=== PATIENT | male | born 1965 | race Caucasian/White ===

== ENCOUNTER 2018-04-27 11:49 | Emergency (ER) | payer OTHER ==
[~2018-04-27] VITALS: Ht 180.3 cm; Wt 102.1 kg
--- OUTSIDE RECORDS SUMMARY | ~2018-04-27 | XMS | Clinical Summary ---
Demographics + + + | Address | [address] | | | [place] [address] | + + + | Home Phone | | + + + | Preferred Language | Unknown | + + + | Marital Status | | + + + | Christianity Affiliation | Unknown | + + + | Race | White | + + + | Ethnic Group | Patient Declined | + + + Author + + + | Author | [facility] | + + + | Organization | [facility] | + + + | Address | [facility] | | | [place] [address] | + + + | Phone | | + + + Care Team Providers + + + + | Care Internet Site Designer Name | Role | Phone | + + + + Unavailable | Unavailable | + + + + Conditions or Problems +---------+---------+---------+--------+---------+---------+---------+---------+---------+ | Problem | Problem | Onset | Status | Entry | Provide | Comment | Standar | Annotat | | Name | Code | Date | | Date | r | | d | e | | | | | | | | | Descrip | | | | | | | | | | tion | | +---------+---------+---------+--------+---------+---------+---------+---------+---------+ | DOT | [id number] | | Active | | Karl | | History | | | physica | 2 | /12 | | /18 | Frauenp | | and | | | l | (SNOMED | | | | ann MD | | physica | | | | CT) | | | | | | l | | | | | | | | | | examina | | | | | | | | | | tion, | | | | | | | | | | adminis | | | | | | | | | | trative | | +---------+---------+---------+--------+---------+---------+---------+---------+---------+ Medications + + + + + +-----+ + | Medication | Instructio | Start Date | Stop Date | Generic | NDC | Provider | | | ns | | | Name | | | + + + + + +-----+ + + + | Observed no known medications at | + + Medications Administered No information available. Allergies, Adverse Reactions, Alerts Observed no known allergies at Results +------+------+-------+------+-------+------+ + | Date | Name | Value | Unit | Range | Flag | Descriptio | | | | | | | | n | +------+------+-------+------+-------+------+ + + + | Office Visit: DOT Physical | + + + +--------+------+---+---+---+ + | | [facility] | Done | | | | Documentat | | | REVIEW | | | | | ion of | | | | | | | | current | | | | | | | | medication | | | | | | | | s | | | | | | | | (procedure | | | | | | | | ) | + +--------+------+---+---+---+ + | | [facility] | T | | | | Documentat | | | | | | | | ion of | | | | | | | | current | | | | | | | | medication | | | | | | | | s | | | | | | | | (procedure | | | | | | | | ) | + +--------+------+---+---+---+ + Plan of Care No information available. Procedures No information available. Vital Signs + + +-------+---------+ + | Date | Name | Value | Unit | Description | + + +-------+---------+ + | | BMI (Body Mass | 30.70 | kg/m2 | Body Mass Index | | | Index) | | | [Ratio] | + + +-------+---------+ + | | Body | 98.7 | [degF] | temperature E&M | | | Temperature | | | | + + +-------+---------+ + | | BP Diastolic | 64 | mm[Hg] | blood pressure, | | | | | | diastolic - | | | | | | 8462-4 | + + +-------+---------+ + | | BP Systolic | 112 | mm[Hg] | blood pressure, | | | | | | systolic - | | | | | | 8480-6 | + + +-------+---------+ + | | Heart Rate | 65 | /min | pulse rate E&M | | | | | | - 8867-4 | + + +-------+---------+ + | | Height | 70 | [in_us] | height E&M - | | | | | | 8302-2 | + + +-------+---------+ + | | O2 % BldC | 98 | % | oxygen | | | Oximetry | | | saturation, | | | | | | oximetry | + + +-------+---------+ + | | Respiratory | 16 | /min | respiratory | | | Rate | | | rate E&M - | | | | | | 9279-1 | + + +-------+---------+ + | | Weight Measured | 214 | [lb_av] | weight E&M - | | | | | | 3141-9 | + + +-------+---------+ + Immunizations No information available. Advance Directives No information available. Chief Complaint + + + | Chief Complaint Description | Start Date | + + + | DOT physcial | | + + + Family History No information available. GE General Observations Section narrative not generated History of Past Illness No information available. History of Present Illness No information available. Review of Systems No information available."
== END 2018-04-27 12:40 | disposition home or self-care (01) ==
LOC: ED 11:49
DX: S00.01XA Abrasion of scalp, initial encounter (principal); F17.200 Nicotine dependence, unspecified, uncomplicated; Z88.0 Allergy status to penicillin; W20.8XXA Other cause of strike by thrown, projected or falling object, initial encounter; Y92.89 Other specified places as the place of occurrence of the external cause; Y99.0 Civilian activity done for income or pay
CPT/HCPCS: 99282

== ENCOUNTER 2019-08-15 12:16 | Emergency (ER) | payer OTHER, BC ==
[~2019-08-15] VITALS: Ht 180.3 cm; Wt 102.1 kg
--- OUTSIDE RECORDS SUMMARY | ~2019-08-15 | XMS | Encounter Summary ---
Demographics + + + | Address | [address] | | | [place] [address] | + + + | Home Phone | | + + + | Preferred Language | Unknown | + + + | Marital Status | | + + + | Sabianism Affiliation | Unknown | + + + | Race | Unknown | + + + | Ethnic Group | Unknown | + + + Author + + + | Author | [facility] | | | and [place] | + + + | Organization | [facility] | | | and [place] | + + + | Address | Unknown | + + + | Phone | Unavailable | + + + Support + + +---------+ + | Name | Relationship | Address | Phone | + + +---------+ + | Lo Rach | ECON | Unknown | | + + +---------+ + Care Team Providers + +------+ + | Care Spa Host Name | Role | Phone | + +------+ + PCP | Unavailable | + +------+ + Encounter Details +--------+ + + + + | Date | Type | Department | Care Team | Description | +--------+ + + + + | 08/13/ | Hospital | [facility] | | | | 1996 - | Encounter | MED CTR GENERIC IP | | | | | | CONV DEPT [address] | | | | 08/14/ | | [place], | | | | 1996 | | [place] [address] | | | | | | [phone] | | | +--------+ + + + + Social History + +-------+ +--------+------+ | Tobacco Use | Types | Packs/Day | Years | Date | | | | | Used | | + +-------+ +--------+------+ | Never Assessed | | | | | + +-------+ +--------+------+ + + + | Sex Assigned at | Date Recorded | | | | + + + | Not on file | | + + + + + + + | Job Start Date | Occupation | Industry | + + + + | Not on file | Not on file | Not on file | + + + + + + + + | Travel History | Travel Start | Travel End | + + + + + + | No recent travel history available. | + + documented as of this encounter Plan of Treatment Not on filedocumented as of this encounter Visit Diagnoses Not on filedocumented in this encounter"
--- OUTSIDE RECORDS SUMMARY | ~2019-08-15 | XMS | Encounter Summary ---
Demographics + + + | Address | [address] | | | [place] [address] | + + + | Home Phone | | + + + | Preferred Language | Unknown | + + + | Marital Status | | + + + | Voodoo Affiliation | Unknown | + + + | Race | Unknown | + + + | Ethnic Group | Unknown | + + + Author + + + | Author | [facility] | | | and [place] | + + + | Organization | [facility] | | | [...] Team Providers + +------+ + | Care Commercial Driver'S License Driver Name | Role | Phone | + +------+ + PCP | Unavailable | + +------+ + Encounter Details +--------+ + + + + | Date | Type | Department | Care Team | Description | +--------+ + + + + | 03/01/ | Hospital | [facility] | | | | 1993 | Encounter | MED CTR EMERGENCY | | | | | | [place] [address] | | | | | | [place] | | | | | | [address] | | | | | | [phone] | | | +--------+ + + + [...]
--- OUTSIDE RECORDS SUMMARY | ~2019-08-15 | XMS | Encounter Summary ---
Demographics + + + | Address | [address] | | | [place] [address] | + + + | Home Phone | | + + + | Preferred Language | Unknown | + + + | Marital Status | | + + + | Restoration Affiliation | Unknown | + + + | Race | Unknown | + + + | Ethnic Group | Unknown | + + + Author + + + | Author | [facility] | | | and [place] | + + + | Organization | [facility] | | | [...] Team Providers + +------+ + | Care Thread Cutter Name | Role | Phone | + +------+ + PCP | Unavailable | + +------+ + Encounter Details +--------+ + + + + | Date | Type | Department | Care Team | Description | +--------+ + + + + | 04/27/ | Hospital | [facility] | | | | 1993 - | Encounter | MED CTR GENERIC IP | | | | | | CONV DEPT [address] | | | | 04/28/ | | [place], | | | | 1993 | | [place] [address] | | | | | | [phone] | | | +--------+ + + + [...]
--- OUTSIDE RECORDS SUMMARY | ~2019-08-15 | XMS | Encounter Summary ---
Demographics + + + | Address | [address] | | | [place] [address] | + + + | Home Phone | | + + + | Preferred Language | Unknown | + + + | Marital Status | | + + + | Scientology Affiliation | Unknown | + + + | Race | Unknown | + + + | Ethnic Group | Unknown | + + + Author + + + | Author | [facility] | | | and [place] | + + + | Organization | [facility] | | | [...] Team Providers + +------+ + | Care Caustic Room Operator Name | Role | Phone | + +------+ + PCP | Unavailable | + +------+ + Encounter Details +--------+ + + + + | Date | Type | Department | Care Team | Description | +--------+ + + + + | 06/17/ | Hospital | [facility] | | | | 1992 | Encounter | MED CTR EMERGENCY | | | | | | [place] [address] | | | | | | [place] | | | | | | [address] | | | | | | [phone] | | | +--------+ + + + [...]
--- OUTSIDE RECORDS SUMMARY | ~2019-08-15 | XMS | Encounter Summary ---
Demographics + + + | Address | [address] | | | [place] [address] | + + + | Home Phone | | + + + | Preferred Language | Unknown | + + + | Marital Status | | + + + | Jainism Affiliation | Unknown | + + + | Race | Unknown | + + + | Ethnic Group | Unknown | + + + Author + + + | Author | [facility] | | | and [place] | + + + | Organization | [facility] | | | [...] Team Providers + +------+ + | Care Sewing Teacher Name | Role | Phone | + +------+ + PCP | Unavailable | + +------+ + Encounter Details +--------+ + + + + | Date | Type | Department | Care Team | Description | +--------+ + + + + | 04/27/ | Hospital | [facility] | | | | 1993 - | Encounter | MED CTR GENERIC IP | | | | | | CONV DEPT [address] | | | | 04/28/ | | [place], | | | | 1993 | | [place] [address] | | | | | | [phone] | | | +--------+ + + + [...]
--- OUTSIDE RECORDS SUMMARY | ~2019-08-15 | XMS | Encounter Summary ---
Demographics + + + | Address | [address] | | | [place] [address] | + + + | Home Phone | | + + + | Preferred Language | Unknown | + + + | Marital Status | | + + + | Jainism Affiliation | Unknown | + + + | Race | Unknown | + + + | Ethnic Group | Unknown | + + + Author + + + | Author | [facility] | | | and [place] | + + + | Organization | [facility] | | | [...] Team Providers + +------+ + | Care Mid Level Project Manager Name | Role | Phone | + +------+ + PCP | Unavailable | + +------+ + Encounter Details +--------+ + + + + | Date | Type | Department | Care Team | Description | +--------+ + + + + | 06/25/ | Hospital | [facility] | Josh Castro MD | Popliteal synovial | | 2009 | Encounter | CONVERSION [address]P [address] [facility] | cyst | | | | [address] | [address] [place], [place] | | | | | [place], [place] | [address] | | | | | [address] | | | | | | [phone] | | | +--------+ + + + [...] filedocumented as of this encounter Visit Diagnoses + + | Diagnosis | + + | 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
--- OUTSIDE RECORDS SUMMARY | ~2019-08-15 | XMS | Encounter Summary ---
Demographics + + + | Address | [address] | | | [place] [address] | + + + | Home Phone | | + + + | Preferred Language | Unknown | + + + | Marital Status | | + + + | Latter-Day Affiliation | Unknown | + + + | Race | Unknown | + + + | Ethnic Group | Unknown | + + + Author + + + | Author | [facility] | | | and [place] | + + + | Organization | [facility] | | | and [...] Team Providers + +------+ + | Care Manager Wellness Name | Role | Phone | + +------+ + PCP | Unavailable | + +------+ + Encounter Details +--------+ + + + + | Date | Type | Department | Care Team | Description | +--------+ + + + + | 09/26/ | Hospital | [facility] | | | | 2008 | Encounter | MED CTR GENERIC OP | | | | | | CONV DEPT [address] | | | | | | [place], | | | | | | [place] [address] | | | | | | [phone] | | | +--------+ + + + [...]
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
--- OUTSIDE RECORDS SUMMARY | ~2019-08-15 | XMS | Encounter Summary ---
Demographics + + + | Address | [address] | | | [place] [address] | + + + | Home Phone | | + + + | Preferred Language | Unknown | + + + | Marital Status | | + + + | Faith Affiliation | Unknown | + + + | Race | Unknown | + + + | Ethnic Group | Unknown | + + + Author + + + | Author | [facility] | | | and [place] | + + + | Organization | [facility] | | | [...] Team Providers + +------+ + | Care Patient Observation Assistant Name | Role | Phone | + +------+ + PCP | Unavailable | + +------+ + Encounter Details +--------+ + + + + | Date | Type | Department | Care Team | Description | +--------+ + + + + | 07/21/ | [facility] | [facility] | [place], | | | 2007 | Encounter | MED CTR EMERGENCY | Francis Rojas MD [address] | | | | | [place] [address] | [facility] | | | | | [place] | [place] [address] | | | | | [address] | [phone] | | | | | [phone] | | | +--------+ + + + [...]
--- OUTSIDE RECORDS SUMMARY | ~2019-08-15 | XMS | Encounter Summary ---
Demographics + + + | Address | [address] | | | [place] [address] | + + + | Home Phone | | + + + | Preferred Language | Unknown | + + + | Marital Status | | + + + | Yazidism Affiliation | Unknown | + + + | Race | Unknown | + + + | Ethnic Group | Unknown | + + + Author + + + | Author | [facility] | | | and [place] | + + + | Organization | [facility] | | | [...] Team Providers + +------+ + | Care Music Education Adjunct Professor Name | Role | Phone | + +------+ + | No, Physician | PCP | Unavailable | + +------+ + Encounter Details +--------+ + + + + | Date | Type | Department | Care Team | Description | +--------+ + + + + | 04/30/ | Emergency | [facility] | No, Physician | Patient left without | | 2018 | | MED CTR EMERGENCY | | being seen (Primary | | | | [address] | | [place]) | | | | [place] | | | | | | [address] | | | | | | [phone] | | | +--------+ + + + + Social History + +-------+ +--------+------+ | Tobacco Use | Types | Packs/Day | Years | Date | | | | | Used | | + +-------+ +--------+------+ | Never Smoker | | | | | + +-------+ +--------+------+ + + +---------+ + | Alcohol Use [...] + + documented as of this encounter Medications at Time of Discharge + + + +---------+--------+ + | Medication | Sig | Dispensed | Refills | Start | End Date | | | | | | Date | | + + + +---------+--------+ + | Ibuprofen (ADVIL) | Take by mouth. | | 0 | | | | 200 MG CAPS | | | | | | + + + +---------+--------+ + documented as of this encounter Plan of Treatment Not on filedocumented as of this encounter Visit Diagnoses + + | Diagnosis | + + | Patient left without being seen - Primary Surgical or other procedure not carried out | | because of patient's decision | + + documented in this encounter"
--- OUTSIDE RECORDS SUMMARY | ~2019-08-15 | XMS | Encounter Summary ---
Demographics + + + | Address | [address] | | | [place] [address] | + + + | Home Phone | | + + + | Preferred Language | Unknown | + + + | Marital Status | | + + + | Mormon Affiliation | Unknown | + + + | Race | Unknown | + + + | Ethnic Group | Unknown | + + + Author + + + | Author | [facility] | | | and [place] | + + + | Organization | [facility] | | | [...] Team Providers + +------+ + | Care Life Sciences Instructor Name | Role | Phone | + +------+ + | No, Physician | PCP | Unavailable | + +------+ + Reason for Visit +--------+ + | Reason | Comments | +--------+ + | Trauma | proc rm/ right hand 4th finger x 1 hour | +--------+ + Encounter Details +--------+---------+ + + + | Date | Type | Department | Care Team | Description | +--------+---------+ + + + | 03/24/ | Office | [facility] | Sada Douglass | Crush injury | | 2015 | Visit | CARE [address] | DO [address] | (Primary Dx) | | | | [place], [place] | [place], [place] | | | | | [address] | [address] | | | | | [phone] | | | +--------+---------+ + + + Social History [...] + + + | Blood Pressure | 94/62 | 03/24/2015 6:42 PM | | | | | PDT | | + + + + + | Pulse | 66 | 03/24/2015 6:42 PM | | | | | PDT | | + + + + + | Temperature | 37.4 C (99.3 F) | 03/24/2015 6:42 PM | | | | | PDT | | + + + + + | Respiratory Rate | 12 | 03/24/2015 6:42 PM | | | | | PDT | | + + + + + | Oxygen Saturation | 98% | 03/24/2015 6:42 PM | | | | | PDT | | + + + + + | Inhaled Oxygen | - | - | | | Concentration | | | | + + + + + | Weight | 88.5 kg (195 lb) | 03/24/2015 6:42 PM | | | | | PDT | | + + + + + | Height | 180.3 cm (5' 11") | 03/24/2015 6:42 PM | | | | | PDT | | + + + + + | Body Mass Index | 27.2 | 03/24/2015 6:42 PM | | | | | PDT | | + + + + + documented in this encounter Patient Instructions Patient Instructions Sada Douglass MD - 03/24/2015 7:20 PM PDTKeep wound clean and dry Prescription for [place] for pain Prescription for Keflex for antibiotic Keep nail protected so it is not accidentally pulled off Return if symptoms worsen or fail to improve documented in this encounter Progress Notes Saad Douglass MD - 03/24/2015 7:34 PM PDTFormatting of this note might be diffe rent from the original. Subjective: Patient ID: Francis Owens is a 49 y.o. male. HPI Comments: Patient is here with chief complaint of pain to his right ring finger. Patie nt states that a friend accidentally dropped a piece of asphalt on his right ring finger. P atient states this occurred earlier today but the bleeding has not stopped and he has had to change the Band-Aid about 6 times. Patient states that the finger is throbbing. This is a n isolated injury and he has no other complaints. He states that his tetanus is up-to-date Patient's medications, allergies, past medical, surgical, social and family histories were reviewed and updated as appropriate. Review of Systems All other systems reviewed and are negative. Objective: Physical Exam Constitutional: He is oriented to person, place, and time. He appears well-developed and we ll-nourished. Musculoskeletal: Hands: Patient has pain and bruising to the distal aspect of his right ring finger. He has a subu ngual hematoma under most of the nailbed. He has a small amount of bleeding from the distal aspect of the finger. Patient can flex and extend at both joints but it is very painful at the DIP. Patient is neurovascularly intact Neurological: He is alert and oriented to person, place, and time. Skin: Skin is warm. Psychiatric: He has a normal mood and affect. Nursing note and vitals reviewed. Assessment: Crush injury to right ring finger with subungual hematoma Plan: Pt seen and examined. He was sent for Xray that showed no acute fracture. His finger was c leaned and the hematoma was trephinated with release of blood and improvement of pain althou gh the finger was casing fluid tender. Pt finger was dressed and he was given rx for norco and kef kane. Advise to keep finger clean and dry and to take cre not to dislodge the nail. Pt advi sed to return if worsening or failing to improve documented in this encounter Plan of Treatment Not on filedocumented as of this encounter Results XR Finger Right 2 + Vw (03/24/2015 7:17 PM PDT) + + | Specimen | + + | | + + + + + | Narrative | Performed At | + + + | XR FINGER RIGHT 2 + VW 03/24/2015 7:17 PM HISTORY: crush injury. | [facility] | | COMPARISON: None. FINDINGS: There are no acute osseous | [facility] | | abnormalities. Moderate degenerative changes are visualized of the | [facility] | | radiocarpal joint and the distal radioulnar joint. Slight deformity | - IMAGING | | is present of the fifth metacarpal midshaft that could be due to old | | | injury. Screw defects are noted of the distal radius that could be due | | | to prior ORIF. Bone mineralization is normal. Soft tissue structures | | | are unremarkable. IMPRESSION - No acute findings. Dictated | | | and Signed by: Ermias Couch MD Electronically signed: 03/25/2015 | | | 8:41 AM | | + + + + + | Procedure Note | + + | Kayden, Barron Results In - 03/25/2015 8:44 AM PDT XR FINGER RIGHT 2 + VW 03/24/2015 7:17 | | PMHISTORY: crush injury.COMPARISON: None.FINDINGS:There are no acute osseous | | abnormalities. Moderate degenerative changes arevisualized of the radiocarpal joint and | | the distal radioulnar joint. Slightdeformity is present of the fifth metacarpal midshaft | | that could be due to oldinjury. Screw defects are noted of the distal radius that could | | be due to priorORIF. Bone mineralization is normal. Soft tissue structures are | | unremarkable.IMPRESSION -No acute findings.Dictated and Signed by: Ermias Couch MD | | Electronically signed: 03/25/2015 8:41 AM | |visualized of the radiocarpal joint and the distal radioulnar joint. Slight | |deformity is present of the fifth metacarpal midshaft that could be due to old | |injury. Screw defects are noted of the distal radius that could be due to prior | |ORIF. Bone mineralization is normal. Soft tissue structures are unremarkable. | | | |IMPRESSION - | |No acute findings. | | | |Dictated and Signed by: Ermias Couch MD | | Electronically signed: 03/25/2015 8:41 AM | + + + + + + + | Performing | Address | City/State/Zipcode | Phone Number | | Organization | | | | + + + + + | [facility] | [address] | [place] | [phone] | | [facility] | | [id number] | | | - IMAGING | | | | + + + + + documented in this encounter Visit Diagnoses + + | Diagnosis | + + | Crush injury - Primary Crushing injury of unspecified site | + + documented in this encounter
--- OUTSIDE RECORDS SUMMARY | ~2019-08-15 | XMS | Encounter Summary ---
Demographics + + + | Address | [address] | | | [place] [address] | + + + | Home Phone | | + + + | Preferred Language | Unknown | + + + | Marital Status | | + + + | Jewish Affiliation | Unknown | + + + [...] Team Providers + +------+ + | Care Conventional Machinist Name | Role | Phone | + +------+ + PCP | Unavailable | + +------+ + Encounter Details +--------+ + + + + | Date | Type | Department | Care Team | Description | +--------+ + + + + | 02/28/ | Hospital | [facility] | Vaibhav Negro MD | Unspecified Internal | | 2007 | Encounter | CON[address] | NEED NEW ADDRESS | Derangement of Knee | | | | [address] | | | | | | [place] | | | | | | [address] | | | | | | [phone] | | | +--------+ + + + [...] + | Diagnosis | + + | Unspecified internal derangement of knee | + + documented in this encounter"
--- OUTSIDE RECORDS SUMMARY | ~2019-08-15 | XMS | Encounter Summary ---
Demographics + + + | Address | [address] | | | [place] [address] | + + + | Home Phone | | + + + | Preferred Language | Unknown | + + + | Marital Status | | + + + | Samaritan Affiliation | Unknown | + + + | Race | Unknown | + + + | Ethnic Group | Unknown | + + + Author + + + | Author | [facility] | | | and [place] | + + + | Organization | [facility] | | | [...] Team Providers + +------+ + | Care Band Sawing Machine Operator Name | Role | Phone | + +------+ + PCP | Unavailable | + +------+ + Encounter Details +--------+ + + + + | Date | Type | Department | Care Team | Description | +--------+ + + + + | 07/21/ | [facility] | [facility] | [place], | | | 2007 | Encounter | MED CTR EMERGENCY | Francis Rojas MD [address] | | | | | [address] | [facility] | | | | | [place] | [place] [address] | | | | | [address] | [phone] | | | | | [phone] | | | +--------+ + + + [...]
--- OUTSIDE RECORDS SUMMARY | ~2019-08-15 | XMS | Encounter Summary ---
Demographics + + + | Address | [address] | | | [place] [address] | + + + | Home Phone | | + + + | Preferred Language | Unknown | + + + | Marital Status | | + + + | Druze Affiliation | Unknown | + + + | Race | Unknown | + + + | Ethnic Group | Unknown | + + + Author + + + | Author | [facility] | | | and [place] | + + + | Organization | [facility] | | | [...] Team Providers + +------+ + | Care Wellness Ambassador Name | Role | Phone | + +------+ + PCP | Unavailable | + +------+ + Encounter Details +--------+ + + + + | Date | Type | Department | Care Team | Description | +--------+ + + + + | 07/02/ | Hospital | [facility] | Gonsalo Ball, | | | 2012 | Encounter | MED CTR EMERGENCY | [address] | | | | | CENTER [address] | [facility] [place] | | | | | [place] | [place] [address] | | | | | [address] | [phone] | | | | | [phone] | | | | | | | Gold Rothman | | | | | | MD [place] [address] | | | | | | [address] [place] | | | | | | [place] [address] | | | | | | [phone] | | | | | | | | +--------+ + + + [...]
--- OUTSIDE RECORDS SUMMARY | ~2019-08-15 | XMS | Encounter Summary ---
Demographics + + + | Address | [address] | | | [place] [address] | + + + | Home Phone | | + + + | Preferred Language | Unknown | + + + | Marital Status | | + + + | Judaism Affiliation | Unknown | + + + [...] Team Providers + +------+ + | Care Obiee Lead Developer Name | Role | Phone | + +------+ + PCP | Unavailable | + +------+ + Encounter Details +--------+ + + + + | Date | Type | Department | Care Team | Description | +--------+ + + + + | 11/03/ | Hospital | [facility] | | | | 1995 | Encounter | MED CTR EMERGENCY | | | | | | [address] | | | | | | [place] | | | | | | [address] | | | | | | [phone] | | | +--------+ + + + [...]
--- OUTSIDE RECORDS SUMMARY | ~2019-08-15 | XMS | Encounter Summary ---
Demographics + + + | Address | [address] | | | [place] [address] | + + + | Home Phone | | + + + | Preferred Language | Unknown | + + + | Marital Status | | + + + | Judaism Affiliation | Unknown | + + + | Race | Unknown | + + + | Ethnic Group | Unknown | + + + Author + + + | Author | [facility] | | | and [place] | + + + | Organization | [facility] | | [...] Team Providers + +------+ + | Care Certifier Name | Role | Phone | + +------+ + PCP | Unavailable | + +------+ + Encounter Details +--------+ + + + + | Date | Type | Department | Care Team | Description | +--------+ + + + + | 06/28/ | Hospital | [facility] | | | | 1998 | Encounter | MED CTR XRAY [address] | | | | | | [address] | | | | | | [place] [address] | | | | | | [phone] | | | +--------+ + + + [...]
--- OUTSIDE RECORDS SUMMARY | ~2019-08-15 | XMS | Encounter Summary ---
Demographics + + + | Address | [address] | | | [place] [address] | + + + | Home Phone | | + + + | Preferred Language | Unknown | + + + | Marital Status | | + + + | Oriental Orthodox Affiliation | Unknown | + + + | Race | Unknown | + + + | Ethnic Group | Unknown | + + + Author + + + | Author | [facility] | | | and [place] | + + + | Organization | [facility] | | | [...] Team Providers + +------+ + | Care Copier Field Service Technician Name | Role | Phone | + +------+ + PCP | Unavailable | + +------+ + Encounter Details +--------+ + + + + | Date | Type | Department | Care Team | Description | +--------+ + + + + | 11/21/ | Hospital | [facility] | | | | 1996 | Encounter | MED CTR EMERGENCY | | | | | | [address] | | | | | | [place] | | | | | | [address] | | | | | | [phone] | | | +--------+ + + + [...]
--- OUTSIDE RECORDS SUMMARY | ~2019-08-15 | XMS | Encounter Summary ---
Demographics + + + | Address | [address] | | | [place] [address] | + + + | Home Phone | | + + + | Preferred Language | Unknown | + + + | Marital Status | | + + + | Mandaen Affiliation | Unknown | + + + | Race | Unknown | + + + | Ethnic Group | Unknown | + + + Author + + + | Author | [facility] | | | and [place] | + + + | Organization | [facility] | | | [...] Team Providers + +------+ + | Care Comfort Station Attendant Name | Role | Phone | + +------+ + | No, Physician | PCP | Unavailable | + +------+ + Encounter Details +--------+ + + + + | Date | Type | Department | Care Team | Description | +--------+ + + + + | 04/03/ | Imaging | [facility] [place] [facility] | [place] | | | 2019 | Exam | [place] [address] | [address], [address] [place] | [place] | | | | | [place] [address] | [address] | | | | | [phone] | | | +--------+ + + + [...] Not on filedocumented as of this encounter Procedures + +--------+ + + + | Procedure Name | Priori | Date/Time | Associated Diagnosis | Comments | | | ty | | | | + +--------+ + + + | XR KNEE RIGHT 3 VW | STAT | 04/03/2019 | Contusion of right | Results for this | | | | 4:00 PM | knee, initial | procedure are in the | | | | PDT | encounter | results section. | + +--------+ + + + documented in this encounter Results XR Knee Right 3 Vw (04/03/2019 4:00 PM PDT) + + | Specimen | + + | | + + + + + | Narrative | Performed At | + + + | THREE VIEWS RIGHT KNEE 04/03/2019 4:00 PM CLINICAL HISTORY: | [facility] | | trauma COMPARISON: RADIOGRAPHS 2007 FINDINGS: Unicompartmental | | | arthroplasty hardware is now present in the medial femorotibial | | | compartment, and appears intact and well seated. Changes of | | | anterior cruciate ligament reconstruction are now suggested as well, | | | with anchors present centrally in the distal femur and proximal | | | tibia. The bones are well-mineralized and well aligned and no | | | fracture or subluxation is evident. Mild narrowing of the lateral | | | femorotibial and patellofemoral compartments is apparent, with | | | marginal osteophyte formation. No knee effusion or other soft | | | tissue abnormality is visible. A small metallic foreign body is | | | present in the dorsal cortex of the mid to distal femoral diaphysis. | | | IMPRESSION - 1. NO RADIOGRAPHIC EVIDENCE OF RECENT INJURY. | | | 2. INTACT CHANGES OF PREVIOUS INSTRUMENTATION DESCRIBED WITH | | | MILD DEGENERATIVE CHANGES. Dictated and Signed by: James Marie | | | Electronically signed: 04/03/2019 10:20 PM | | + + + + + | Procedure Note | + + | Kayden, Rad Results In - 04/03/2019 10:23 PM PDT THREE VIEWS RIGHT KNEE 04/03/2019 4:00 | | PMCLINICAL HISTORY: traumaCOMPARISON: RADIOGRAPHS 2007FINDINGS: Unicompartmental | | arthroplasty hardware is now present in the medialfemorotibial compartment, and appears | | intact and well seated. Changes ofanterior cruciate ligament reconstruction are now | | suggested as well, withanchors present centrally in the distal femur and proximal tibia. | | The bones arewell-mineralized and well aligned and no fracture or subluxation is | | evident. Mild narrowing of the lateral femorotibial and patellofemoral compartments | | isapparent, with marginal osteophyte formation. No knee effusion or other softtissue | | abnormality is visible. A small metallic foreign body is present in thedorsal cortex of | | the mid to distal femoral diaphysis.IMPRESSION -1. NO RADIOGRAPHIC EVIDENCE OF RECENT | | INJURY.2. INTACT CHANGES OF PREVIOUS INSTRUMENTATION DESCRIBED WITH | | MILDDEGENERATIVE CHANGES.Dictated and Signed by: James Marie MD Electronically signed: | | 04/03/2019 10:20 PM | |tissue abnormality is visible. A small metallic foreign body is present in the | |dorsal cortex of the mid to distal femoral diaphysis. | | | |IMPRESSION - | |1. NO RADIOGRAPHIC EVIDENCE OF RECENT INJURY. | | | |2. INTACT CHANGES OF PREVIOUS INSTRUMENTATION DESCRIBED WITH MILD | |DEGENERATIVE CHANGES. | | | |Dictated and Signed by: James Marie MD | | Electronically signed: 04/03/2019 10:20 PM | + + + +---------+ + + | Performing | Address | City/State/Zipcode | Phone Number | | Organization | | | | + +---------+ + + | [facility] | | | | + +---------+ + + documented in this encounter Visit Diagnoses Not on filedocumented in this encounter"
--- OUTSIDE RECORDS SUMMARY | ~2019-08-15 | XMS | Encounter Summary ---
Demographics + + + | Address | [address] | | | [place] [address] | + + + | Home Phone | | + + + | Preferred Language | Unknown | + + + | Marital Status | | + + + | Yazidi Affiliation | Unknown | + + + | Race | Unknown | + + + | Ethnic Group | Unknown | + + + Author + + + | Author | [facility] | | | and [place] | + + + | Organization | [facility] | | [...] Team Providers + +------+ + | Care Geomagnetist Name | Role | Phone | + +------+ + PCP | Unavailable | + +------+ + Encounter Details +--------+ + + + + | Date | Type | Department | Care Team | Description | +--------+ + + + + | 10/18/ | Hospital | [facility] | | | | 1997 | Encounter | MED CTR EMERGENCY | | | | | | [address] | | | | | | [place] | | | | | | [address] | | | | | | [phone] | | | +--------+ + + + [...]
--- OUTSIDE RECORDS SUMMARY | ~2019-08-15 | XMS | Encounter Summary ---
Demographics + + + | Address | [address] | | | [place] [address] | + + + | Home Phone | | + + + | Preferred Language | Unknown | + + + | Marital Status | | + + + | Restorationist Affiliation | Unknown | + + + | Race | Unknown | + + + | Ethnic Group | Unknown | + + + Author + + + | Author | [facility] | | | and [place] | + + + | Organization | [facility] | | | [...] Team Providers + +------+ + | Care First Officer And Flight Instructor Name | Role | Phone | + +------+ + | No, Physician | PCP | Unavailable | + +------+ + Reason for Visit + + + | Reason | Comments | + + + | Headache (Adult - | | | Re-evaluation) | | + + + Encounter Details +--------+ + + + + | Date | Type | Department | Care Team | Description | +--------+ + + + + | 09/25/ | Emergency | [facility] | Musa Najera, | Blunt head trauma, | | 2018 | | MED CTR EMERGENCY | [place] [address] | initial encounter | | | | CENTER [address] | [place] | (Primary Dx); | | | | [place] | [address] | Concussion without | | | | [address] | | loss of | | | | [phone] | | consciousness, | | | | | | initial encounter | +--------+ + + + + Social [...] + + + | Blood Pressure | 118/77 | 05/01/2018 11:35 AM | | | | | PDT | | + + + + + | Pulse | 63 | 05/01/2018 11:35 AM | | | | | PDT | | + + + + + | Temperature | 36.1 C (96.9 F) | 05/01/2018 11:35 AM | | | | | PDT | | + + + + + | Respiratory Rate | 16 | 05/01/2018 11:35 AM | | | | | PDT | | + + + + + | Oxygen Saturation | 96% | 05/01/2018 11:35 AM | | | | | PDT | | + + + + + | Inhaled Oxygen | - | - | | | Concentration | | | | + + + + + | Weight | 103.6 kg (228 lb 6.3 | 05/01/2018 11:35 AM | | | | oz) | PDT | | + + + + + | Height | - | - | | + + + + + | Body Mass Index | 31.85 | 04/30/2018 6:17 PM | | | | | PDT | | + + + + + documented in this encounter Discharge Instructions AttachmentsThe following attachments cannot be sent through Care Everywhere.Concussion, Aft er (Indonesian)documented in this encounter Medications at Time of Discharge + + + +---------+ + + | Medication | Sig | Dispensed | Refills | Start | End Date | | | | | | Date | | + + + +---------+ + + | | Take 1 tablet by | 30 | 0 | 05/01/20 | | | HYDROcodone-acetamin | mouth every 6 hours | tablet | | 18 | | | ophen (NORCO) 5-325 | as needed. | | | | | | mg per tablet | | | | | | + + + +---------+ + + | Ibuprofen (ADVIL) | Take by mouth. | | 0 | | | | 200 MG CAPS | | | | | | + + + +---------+ + + documented as of this encounter Plan of Treatment Not on filedocumented as of this encounter Procedures + +--------+ + + + | Procedure Name | Priori | Date/Time | Associated Diagnosis | Comments | | | ty | | | | + +--------+ + + + | CT HEAD WO CONTRAST | STAT | 05/01/2018 | | Results for this | | | | 12:45 PM | | procedure are in the | | | | PDT | | results section. | + +--------+ + + + documented in this encounter Results CT Head wo Contrast (05/01/2018 12:45 PM PDT) + + | Specimen | + + | | + + + + + | Narrative | Performed At | + + + | UNENHANCED HEAD CT 05/01/2018 12:36 PM CLINICAL HISTORY: trauma | [facility] | | COMPARISON: None available TECHNIQUE: Axial unenhanced | | | images are performed through the head, along with coronal and | | | sagittal reformations. FINDINGS: There is early cerebral | | | atrophy. Ramirez-white differentiation is maintained. The cerebral | | | parenchyma, ventricles, brainstem and cerebellum are otherwise | | | unremarkable. There is no mass effect, evidence of intracranial | | | hemorrhage or extra-axial abnormality. Concavity of the left lamina | | | papyracea likely relates to more remote trauma. The bones and soft | | | tissues, including the imaged paranasal sinuses, middle ear cavities | | | and mastoid air cells, are otherwise unremarkable. No recent | | | fracture is visible. IMPRESSION - 1. NO EVIDENCE OF RECENT | | | TRAUMATIC INJURY OR ACUTE INTRACRANIAL DISEASE. Images were | | | provided for interpretation on May 01, 2018 at 1245 hours. | | | Results were finalized at 1255 hours. Dictated and Signed by: James | | | MD Frank Electronically signed: 05/01/2018 12:50 PM | | + + + + + | Procedure Note | + + | Kayden, Rad Results In - 05/01/2018 12:53 PM PDT UNENHANCED HEAD CT 05/01/2018 12:36 PM | | | | CLINICAL HISTORY: trauma | | | | COMPARISON: None available | | | | TECHNIQUE: Axial unenhanced images are performed through the head, along with | | coronal and sagittal reformations. | | | | FINDINGS: There is early cerebral atrophy. Ramirez-white differentiation is | | maintained. The cerebral parenchyma, ventricles, brainstem and cerebellum are | | otherwise unremarkable. There is no mass effect, evidence of intracranial | | hemorrhage or extra-axial abnormality. Concavity of the left lamina papyracea | | likely relates to more remote trauma. The bones and soft tissues, including the | | imaged paranasal sinuses, middle ear cavities and mastoid air cells, are | | otherwise unremarkable. No recent fracture is visible. | | | | IMPRESSION - | | 1. NO EVIDENCE OF RECENT TRAUMATIC INJURY OR ACUTE INTRACRANIAL DISEASE. | | | | Images were provided for interpretation on May 01, 2018 at 1245 hours. | | Results were finalized at 1255 hours. | | | | Dictated and Signed by: James Marie MD | | Electronically signed: 05/01/2018 12:50 PM | + + + +---------+ + + | Performing | Address | City/State/Zipcode | Phone Number | | Organization | | | | + +---------+ + + | [facility] | | | | + +---------+ + + documented in this encounter Visit Diagnoses + + | Diagnosis | + + | Blunt head trauma, initial encounter - Primary | + + | Concussion without loss of consciousness, initial encounter | + + documented in this encounter"
--- OUTSIDE RECORDS SUMMARY | ~2019-08-15 | XMS | Clinical Summary ---
Demographics + + + | Address | [address] | | | [place] [address] | + + + | Home Phone | | + + + | Preferred Language | Unknown | + + + | Marital Status | | + + + | Temple Affiliation | Unknown | + + + | Race | Unknown | + + + | Ethnic Group | Unknown | + + + Author + + + | Author | [facility] | | | and [place] | + + + | Organization | [facility] | | | [...] Team Providers + +------+ + | Care Medical Scientific Officer Name | Role | Phone | + +------+ + | No, Physician | PCP | Unavailable | + +------+ + Allergies + + + + + + | Active Allergy | Reactions | Severity | Noted | Comments | | | | | Date | | + + + + + + | Penicillins | | | 03/24/20 | | | | | | 15 | | + + + + + + Medications + + + +---------+------+------+-------+ | Medication | Sig | Dispensed | Refills | Star | End | Statu | | | | | | t | Date | s | | | | | | Date | | | + + + +---------+------+------+-------+ | Ibuprofen (ADVIL) | Take by mouth. | | 0 | | | Activ | | 200 MG CAPS | | | | | | e | + + + +---------+------+------+-------+ | | Take 1 tablet by | 30 | 0 | 09/2 | | Activ | | HYDROcodone-acetamin | mouth every 6 hours | tablet | | / | | e | | ophen (NORCO) 5-325 | as needed. | | | 18 | | | | mg per tablet | | | | | | | + + + +---------+------+------+-------+ +---+ + | | Additional | | | informationPatient | | | not taking. Reported | | | on 05/24/2018 9:01 | | | AM | +---+ + Active Problems + + + | Problem | Noted Date | + + + | Tobacco abuse | 05/15/2017 | + + + + + | Overview: Overview: 30+ Pack year eexlfue5505/15/2017-patient | | declines screening CT scan.Last Assessment & Plan: Patient | | declines screening CT scan, we discussed in detail risks | | associated with 30+ pack-year smoking history. Patient will | | consider screening CT scan in the future. | |Patient declines screening CT scan, we discussed in detail risks associated with 30+ pack-y ear smoking history. Patient will consider screening CT scan in the future. | + + + + + | Hx of vasectomy | 05/15/2017 | + + + + + | Overview: Overview: -requesting referral for | | reversal of vasectomyReferral to Urology placed.Last Assessment & | | Plan: Patient requesting referral for vasectomy reversal. | | Referral to Urology be placed today, referral process discussed | | with patient in detail today. | |Last Assessment & Plan: | |Patient requesting referral for vasectomy reversal. Referral to Urology be placed today, r eferral process discussed with patient in detail today. | + + + + + | Functional disorder of stomach | 12/04/2009 | + + + + + | Overview: Overview: | | H. Pylori positive. Helidac treatment. | | | | IMO Problem List Replacement - 2016_Regulatory_1 | + + + + + | Bronchitis | 12/21/2006 | + + + + + | Overview: Overview: | | Dx Name changed by system update on 05/19/2017 | + + Social History + +-------+ +--------+------+ [...] recent travel history available. | + + Last Filed Vital Signs + + + + + | Vital Sign | Reading | Time Taken | Comments | + + + + + | Blood Pressure | 128/79 | 07/11/2018 10:23 AM | | | | | PST | | + + + + + | Pulse | 82 | 04/03/2019 3:03 PM | | | | | PDT | | + + + + + | Temperature | 36.8 C (98.2 F) | 04/03/2019 3:03 PM | | | | | PDT | | + + + + + | Respiratory Rate | 16 | 04/03/2019 3:03 PM | | | | | PDT | | + + + + + | Oxygen Saturation | 95% | 04/03/2019 3:03 PM | | | | | PDT | | + + + + + | Inhaled Oxygen | - | - | | | Concentration | | | | + + + + + | Weight | 106.9 kg (235 lb | 04/03/2019 3:03 PM | | | | 10.8 oz) | PDT | | + + + + + | Height | 180.3 cm (5' 11") | 07/11/2018 10:23 AM | | | | | PST | | + + + + + | Body Mass Index | 32.87 | 07/11/2018 10:23 AM | | | | | PST | | + + + + + Plan of Treatment + + + + + | Health Maintenance | Due Date | Last Done | Comments | + + + + + | Hepatitis C | | | | | Screening | 5 | | | + + + + + | Vaccine: | | | | | Pneumococcal 19-64 | 1 | | | | (1 of 1 - PPSV23) | | | | + + + + + | Colorectal Cancer | | | | | Screening | 5 | | | | (Colonoscopy) | | | | + + + + + | Vaccine: Zoster (1 | | | | | of 2) | 5 | | | + + + + + | Vaccine: Influenza | | | | | (#1) | 9 | | | + + + + + | Vaccine: | | 08/07/2015 | | | Dtap/Tdap/Td (2 - | 6 | | | | Td) | | | | + + + + + Results Not on filefrom Last 3 Months Advance Directives + + + + + | Type | Date Recorded | Patient | Explanation | | | | Deputy Commonwealth'S Attorney | | + + + + + | Power of | | | | | Supervisor [employer] | | | | + + + + + | Advance | 05/01/2018 11:51 | | | | Directive | AM | | | + + + + +
--- OUTSIDE RECORDS SUMMARY | ~2019-08-15 | XMS | Encounter Summary ---
Demographics + + + | Address | [address] | | | [place] [address] | + + + | Home Phone | | + + + | Preferred Language | Unknown | + + + | Marital Status | | + + + | Sikh Affiliation | Unknown | + + + | Race | Unknown | + + + | Ethnic Group | Unknown | + + + Author + + + | Author | [facility] | | | and [place] | + + + | Organization | [facility] | | | [...] Team Providers + +------+ + | Care Christian Counselor Name | Role | Phone | + +------+ + PCP | Unavailable | + +------+ + Encounter Details +--------+ + + + + | Date | Type | Department | Care Team | Description | +--------+ + + + + | 08/01/ | Hospital | [facility] | | | | 1990 | Encounter | MED CTR EMERGENCY | | | | | | [address] [address] | | | | | | [place] | | | | | | [address] | | | | | | [phone] | | | +--------+ + + + [...]
--- OUTSIDE RECORDS SUMMARY | ~2019-08-15 | XMS | Encounter Summary ---
Demographics + + + | Address | [address] | | | [place] [address] | + + + | Home Phone | | + + + | Preferred Language | Unknown | + + + | Marital Status | | + + + | Orthodoxy Affiliation | Unknown | + + + | Race | Unknown | + + + | Ethnic Group | Unknown | + + + Author + + + | Author | [facility] | | | and [place] | + + + | Organization | [facility] | | | [...] Providers + +------+ + | Care Medical Examiner Name | Role | Phone | + +------+ + PCP | Unavailable | + +------+ + Encounter Details +--------+ + + + + | Date | Type | Department | Care Team | Description | +--------+ + + + + | 06/27/ | Hospital | [facility] | | | | 1998 | Encounter | MED CTR EMERGENCY | | | | | | [place] [address] | | | | | | [place] | | | | | | [address] | | | | | | [phone] | | | +--------+ + + + [...]
--- OUTSIDE RECORDS SUMMARY | ~2019-08-15 | XMS | Encounter Summary ---
Demographics + + + | Address | [address] | | | [place] [address] | + + + | Home Phone | | + + + | Preferred Language | Unknown | + + + | Marital Status | | + + + | Anglican Affiliation | Unknown | + + + | Race | Unknown | + + + | Ethnic Group | Unknown | + + + Author + + + | Author | [facility] | | | and [place] | + + + | Organization | [facility] | | [...] Team Providers + +------+ + | Care Cornetist Name | Role | Phone | + +------+ + PCP | Unavailable | + +------+ + Encounter Details +--------+ + + + + | Date | Type | Department | Care Team | Description | +--------+ + + + + | 07/24/ | Hospital | [facility] | Tulio Delgado, | | | 2012 | Encounter | MED CTR EMERGENCY | [address] | | | | | CENTER [address] | [place] | | | | | [place] | [address] | | | | | [address] | | | | | | [phone] | Zen James | | | | | | Horacio Garcia MD | | | | | | [address] | | | | | | [place] | | | | | | [address] | | | | | | | [...] + +--------+ + + + | XR FOOT RIGHT 3 + VW | Routin | 07/24/2013 | | Results for this | | | e | 4:08 PM | | procedure are in the | | | | PST | | results section. | + +--------+ + + + documented in this encounter Results XR Foot Right 3 + Vw (07/24/2013 4:08 PM PST) + + | Specimen | + + | | + + + + + | Narrative | Performed At | + + + | [facility] | [place] | | Department [address] [place] [address] | [facility] | | [ rep ct [address]] [ rep ct [facility] | | st zip] Signed | - IMAGING | | | | | Patient Name: ZEN OWENS | | | Physician: GUERO : 1965 Age: 48 Sex: M Unit | | | #: [id number] Exam Date: 07/24/13 Location: | | | ER Report #: [id number] Page: | | | %(RAD)RES..mtdd.print.filter("pg") of %(RAD) | | | RES..mtdd.print.filter("tpg") | | | | | | Accession Number: [id number] | | | RIGHT FOOT, 07/24/2013 CLINICAL HISTORY: DROPPED A | | | SHEET OF [place] ON FOOT. COMPARISON: None. | | | FINDINGS: 3 views of the right foot were obtained. There is no | | | evidence for acute fracture or dislocation. Deformity is | | | visualized of the distal shafts of the 3rd and 4th metatarsals that | | | likely represent old injuries. There is a small spur involving the | | | neck of the 5th metatarsal. Mild degenerative changes are noted | | | of the 1st MTP joint with osteophytosis. A tiny spur is observed of | | | the posterior calcaneus. Bone mineralization is normal. | | | IMPRESSION: 1. NO ACUTE FINDINGS. | | | 2. OLD INJURIES TO THE 3RD AND 4TH METATARSALS. 3. | | | DEGENERATIVE CHANGES DESCRIBED ABOVE. Dictated | | | Date/Time: 07/24/2013 16:08 Transcribed Date/Time: 07/24/2013 | | | 17:45 Household Assistant: <<Signature | | | on File>> | | | Ermias | | | MD Khoa07/25/13 0814 <Electronically signed by Ermias Couch MD> | | | Ermias Couch MD 07/24/13 1608 Household Assistant: Clinician [employer]x | | | Iseddinkqerhb94/18/13 1745 Tulio Delgado MD | | + + + + + + + + | Performing | Address | City/State/Zipcode | Phone Number | | Organization | | | | + + + + + | [facility] | [address] | [place] | [phone] | | [facility] | | [address] | | | - IMAGING | | | | + + + + + documented in this encounter Visit Diagnoses Not on filedocumented in this encounter
--- OUTSIDE RECORDS SUMMARY | ~2019-08-15 | XMS | Encounter Summary ---
Demographics + + + | Address | [address] | | | [place] [address] | + + + | Home Phone | | + + + | Preferred Language | Unknown | + + + | Marital Status | | + + + | Jehovah'S Witness Affiliation | Unknown | + + + [...] Team Providers + +------+ + | Care Certified Medical Technician Name | Role | Phone | + +------+ + PCP | Unavailable | + +------+ + Encounter Details +--------+ + + + + | Date | Type | Department | Care Team | Description | +--------+ + + + + | 03/08/ | Hospital | [facility] | Unknown, | | | 1993 | Encounter | MED CTR XRAY [address] | MD [place]ama | | | | | [address] | | | | | | [place] [address] | | | | | | [phone] | | | +--------+ + + + [...]
--- OUTSIDE RECORDS SUMMARY | ~2019-08-15 | XMS | Encounter Summary ---
Demographics + + + | Address | [address] | | | [place] [address] | + + + | Home Phone | | + + + | Preferred Language | Unknown | + + + | Marital Status | | + + + | Confucianism Affiliation | Unknown | + + + [...] Team Providers + +------+ + | Care Senior Reliability Engineer Name | Role | Phone | + +------+ + PCP | Unavailable | + +------+ + Encounter Details +--------+ + + + + | Date | Type | Department | Care Team | Description | +--------+ + + + + | 06/27/ | Hospital | [facility] | | | | 1998 | Encounter | MED CTR EMERGENCY | | | | | | [place] [address] | | | | | | [place] | | | | | | [address] | | | | | | [phone] | | | +--------+ + + + [...]
--- OUTSIDE RECORDS SUMMARY | ~2019-08-15 | XMS | Encounter Summary ---
Demographics + + + | Address | [address] | | | [place] [address] | + + + | Home Phone | | + + + | Preferred Language | Unknown | + + + | Marital Status | | + + + | Sabianism Affiliation | Unknown | + + + | Race | Unknown | + + + | Ethnic Group | Unknown | + + + Author + + + | Author | [facility] | | | and [place] | + + + | Organization | [facility] | | [...] Team Providers + +------+ + | Care Parachute Officer Name | Role | Phone | + +------+ + PCP | Unavailable | + +------+ + Encounter Details +--------+ + + + + | Date | Type | Department | Care Team | Description | +--------+ + + + + | 09/26/ | Hospital | [facility] | | | | 2008 | Encounter | MED CTR GENERIC OP | | | | | | CONV DEPT [address] | | | | | | [address] [place], | | | | | | [place] [address] | | | | | | [phone] | | | +--------+ + + + [...]
--- OUTSIDE RECORDS SUMMARY | ~2019-08-15 | XMS | Encounter Summary ---
Demographics + + + | Address | [address] | | | [place] [address] | + + + | Home Phone | | + + + | Preferred Language | Unknown | + + + | Marital Status | | + + + | Adventist Affiliation | Unknown | + + + | Race | Unknown | + + + | Ethnic Group | Unknown | + + + Author + + + | Author | [facility] | | | and [place] | + + + | Organization | [facility] | | | and [...] Team Providers + +------+ + | Care Hydro Electric Station Operator Name | Role | Phone | + +------+ + PCP | Unavailable | + +------+ + Encounter Details +--------+ + + + + | Date | Type | Department | Care Team | Description | +--------+ + + + + | 06/25/ | Hospital | [facility] | Josh Castro MD | Popliteal synovial | | 2009 | Encounter | CONVERSION [address] | [address] [facility] | cyst | | | | [address] | [address] [place], [place] | | | | | [place], [place] | [address] | | | | | [address] | | | | | | [phone] | | | +--------+ + + + [...]
--- OUTSIDE RECORDS SUMMARY | ~2019-08-15 | XMS | Encounter Summary ---
Demographics + + + | Address | [address] | | | [place] [address] | + + + | Home Phone | | + + + | Preferred Language | Unknown | + + + | Marital Status | | + + + | Orthodox Affiliation | Unknown | + + + | Race | Unknown | + + + | Ethnic Group | Unknown | + + + Author + + + | Author | [facility] | | | and [place] | + + + | Organization | [facility] | | [...] Team Providers + +------+ + | Care Museum Docent Name | Role | Phone | + +------+ + PCP | Unavailable | + +------+ + Encounter Details +--------+ + + + + | Date | Type | Department | Care Team | Description | +--------+ + + + + | 12/03/ | Hospital | [facility] | | | | 2002 | Encounter | MED CTR EMERGENCY | | | | | | [place] [address] | | | | | | [place] | | | | | | [address] | | | | | | [phone] | | | +--------+ + + + [...]
--- OUTSIDE RECORDS SUMMARY | ~2019-08-15 | XMS | Encounter Summary ---
Demographics + + + | Address | [address] | | | [place] [address] | + + + | Home Phone | | + + + | Preferred Language | Unknown | + + + | Marital Status | | + + + | Confucianism Affiliation | Unknown | + + + | Race | Unknown | + + + | Ethnic Group | Unknown | + + + Author + + + | Author | [facility] | | | and [place] | + + + | Organization | [facility] | | | [...] Team Providers + +------+ + | Care Customer Records Division Supervisor Name | Role | Phone | + +------+ + PCP | Unavailable | + +------+ + Encounter Details +--------+ + + + + | Date | Type | Department | Care Team | Description | +--------+ + + + + | 03/08/ | Hospital | [facility] | Unknown, | | | 1993 | Encounter | MED CTR XRAY [address] | [place] | | | | | [address] | | | | | | [place] [address] | | | | | | [phone] | | | +--------+ + + + [...]
--- OUTSIDE RECORDS SUMMARY | ~2019-08-15 | XMS | Encounter Summary ---
Demographics + + + | Address | [address] | | | [place] [address] | + + + | Home Phone | | + + + | Preferred Language | Unknown | + + + | Marital Status | | + + + | Hoahaoism Affiliation | Unknown | + + + | Race | Unknown | + + + | Ethnic Group | Unknown | + + + Author + + + | Author | [facility] | | | and [place] | + + + | Organization | [facility] | | | [...] Team Providers + +------+ + | Care Review Specialist Name | Role | Phone | + +------+ + PCP | Unavailable | + +------+ + Encounter Details +--------+ + + + + | Date | Type | Department | Care Team | Description | +--------+ + + + + | 06/10/ | Hospital | [facility] | Bassem [place], | | | 2008 | Encounter | FAMILY GENERIC | [address] | | | | | CON[address] | [address] | | | | | [address] | [place] [address] | | | | | Gemini | [phone] | | | | | [place] | | | | | | [address] | | | | | | [phone] | | | +--------+ + + + [...]
--- OUTSIDE RECORDS SUMMARY | ~2019-08-15 | XMS | Encounter Summary ---
Demographics + + + | Address | [address] | | | [place] [address] | + + + | Home Phone | | + + + | Preferred Language | Unknown | + + + | Marital Status | | + + + | Quaker Affiliation | Unknown | + + + [...] Team Providers + +------+ + | Care Family Practice Physician Assistant Name | Role | Phone | [...] | | of | [address] | [address] | | | | | consciousnes | [place], | [place] | | | | | s, | [place] [address] | [address] | | | | | subsequent | Phone: | Phone: | | | | | encounter | [phone] | [phone] | | | | | Place of | Fax: | Fax: | | | | | occurrence, | [phone] | [phone] | | | | | industrial | [...] + + | 05/24/ | Office | [facility] | Shelley Robledo | Closed head injury | | 2018 | Visit | [facility] | MD [place] [address] | without loss of | | | | [address] [place] | consciousness, | | | | [address] [place] | [place] [address] | subsequent encounter | | | | [place] | [phone] | (Primary Dx); Place | | | | [address] | | of occurrence, | | | | [phone] | | industrial places | | | [...] LISA Date of injury: 04/27/18 Claim number: [id number] Chief complaint: Follow-up head injury Subjective: Injured [...] 53. Standing-blood press ure 128/80, pulse 57 Cfmgupl-oypa-tbleynatj, well-nourished, in no apparent distress, pleasant cooperative. [...] MMI status. This note was dictated using Pidefarma voice recognition software. Occasional wrong- word or [...]
--- OUTSIDE RECORDS SUMMARY | ~2019-08-15 | XMS | Encounter Summary ---
Demographics + + + | Address | [address] | | | [place] [address] | + + + | Home Phone | | + + + | Preferred Language | Unknown | + + + | Marital Status | | + + + | Worship Affiliation | Unknown | + + + | Race | Unknown | + + + | Ethnic Group | Unknown | + + + Author + + + | Author | [facility] | | | and [place] | + + + | Organization | [facility] | | | and [...] Team Providers + +------+ + | Care Endo Tech Name | Role | Phone | + +------+ + PCP | Unavailable | + +------+ + Encounter Details +--------+ + + + + | Date | Type | Department | Care Team | Description | +--------+ + + + + | 07/07/ | Hospital | [facility] | | | | 2007 - | Encounter | MED CTR OP REHAB | | | | | | [address] | | | | 08/06/ | | [place] [address] | | | | 2007 | | [phone] | | | +--------+ + + + [...]
--- OUTSIDE RECORDS SUMMARY | ~2019-08-15 | XMS | Encounter Summary ---
Demographics + + + | Address | [address] | | | [place] [address] | + + + | Home Phone | | + + + | Preferred Language | Unknown | + + + | Marital Status | | + + + | Adventist Affiliation | Unknown | + + + | Race | Unknown | + + + | Ethnic Group | Unknown | + + + Author + + + | Author | [facility] | | | and [place] | + + + | Organization | [facility] | | | [...] Team Providers + +------+ + | Care Air Cargo Ground Operations Supervisor Name | Role | Phone | + +------+ + PCP | Unavailable | + +------+ + Encounter Details +--------+ + + + + | Date | Type | Department | Care Team | Description | +--------+ + + + + | 07/24/ | Hospital | [facility] | Tulio Delgado, | | | 2012 | Encounter | MED CTR EMERGENCY | [address] | | | | | CENTER [address] | [place] | | | | | [place] | [address] | | | | | [address] | | | | | | [phone] | Zen James | | | | | | Horacio Garcia MD | | | | | | [address] | | | | | | [place] | | | | | | [address] | | | | | | | [...] Performed At | + + + | [facility] | [place] | | Department [address] [place] [address] | [facility] | | [ rep ct [address]] [ rep ct [facility] | | st zip] Signed | - IMAGING | | | | | Patient Name: ZEN OWENS | | | Physician: GUERO : 1965 Age: 48 Sex: M Unit | | | #: [id number] Exam Date: 07/24/13 Location: | | | ER Report #: [id number] Page: | | | %(RAD)RES..mtdd.print.filter("pg") of %(RAD) | | | RES..mtdd.print.filter("tpg") | | | | | | Accession Number: [id number] | | | RIGHT FOOT, 07/24/2013 CLINICAL [...] Transcribed Date/Time: 07/24/2013 | | | 17:[address] Foreman: <<Signature | | | on File>> | | | Ermias | | | MD Khoa07/25/13 0814 <Electronically signed by Ermias Couch MD> | | | Ermias Couch MD 07/24/[address] Foreman: [employer] | | | Mrpksotrwxwcc27/18/13 1745 Tulio Delgado MD | | + + + + + + + + | Performing | Address | City/State/Zipcode | Phone Number | | Organization | | | | + + + + + | [facility] | [address] | [place] | [phone] | | [facility] | | [address] | | | - IMAGING | | | | + + + + + documented in this encounter Visit Diagnoses Not on filedocumented in this encounter
--- OUTSIDE RECORDS SUMMARY | ~2019-08-15 | XMS | Encounter Summary ---
Demographics + + + | Address | [address] | | | [place] [address] | + + + | Home Phone | | + + + | Preferred Language | Unknown | + + + | Marital Status | | + + + | Shinto Affiliation | Unknown | + + + | Race | Unknown | + + + | Ethnic Group | Unknown | + + + Author + + + | Author | [facility] | | | and [place] | + + + | Organization | [facility] | | | [...] Team Providers + +------+ + | Care Pmp Certified Project Manager Name | Role | Phone | + +------+ + PCP | Unavailable | + +------+ + Encounter Details +--------+ + + + + | Date | Type | Department | Care Team | Description | +--------+ + + + + | 02/04/ | Hospital | [facility] | | | | 1994 | Encounter | MED CTR EMERGENCY | | | | | | [address] | | | | | | [place] | | | | | | [address] | | | | | | [phone] | | | +--------+ + + + [...]
--- OUTSIDE RECORDS SUMMARY | ~2019-08-15 | XMS | Encounter Summary ---
Demographics + + + | Address | [address] | | | [place] [address] | + + + | Home Phone | | + + + | Preferred Language | Unknown | + + + | Marital Status | | + + + | Sabianism Affiliation | Unknown | + + + | Race | Unknown | + + + | Ethnic Group | Unknown | + + + Author + + + | Author | [facility] | | | and [place] | + + + | Organization | [facility] | | | [...] Team Providers + +------+ + | Care Cableman Name | Role | Phone | + +------+ + PCP | Unavailable | + +------+ + Encounter Details +--------+ + + + + | Date | Type | Department | Care Team | Description | +--------+ + + + + | 09/16/ | Hospital | [facility] | Jas Steward | Unspecified Disorder | | 2008 | Encounter | CONVERSION DEP [address] | MD [address] | of Ankle and Foot | | | | JOYCE [address]IDSON | [address] | Joint | | | | [place] | [place] [address] | | | | | [address] | [phone] | | | | | [phone] | | | +--------+ + + + [...] | + +--------+ + + + | MRI ANKLE RIGHT WO | Routin | 09/16/2008 | | Results for this | | CONTRAST | e | 12:15 PM | | procedure are in the | | | | PST | | results section. | + +--------+ + + + documented in this encounter Results MRI Ankle Right wo Contrast (09/16/2008 12:15 PM PST) + + | Specimen | + + | | + + + + + | Narrative | Performed At | + + + | [id number] | | | Page 1 RADIOLOGY | | | / | | | O/P [facility] | | | NAME: [place] [address] | | | | | | | | | DATE OF : 1965 ORDER NUMBER: [id number] | | | EXAM DATE/TIME: 09/16/2008 11:37 A ORDERING PHYSICIAN: SELF, | | | REFERRED ORDER DETAIL: [id number] / / OMR EXAM DESCRIPTION: MRI ANKLE | | | RIGHT UNENHANCED | | | | | | MRI RIGHT ANKLE UNENHANCED 09/16/2008 HISTORY Pain, medial right | | | ankle. COMPARISON None. TECHNIQUE Using a 1.5 Kailey field | | | strength magnet, T1 and STIR images in axial, sagittal, and coronal | | | planes were obtained without gadolinium contrast. FINDINGS In | | | general, the bone marrow signal intensity in the distal tibia, distal | | | fibula, calcaneus, and tarsal and metatarsal bones is within normal | | | limits. The exception is the talus. In the medial aspect of the talar | | | dome, there is increased T2 signal intensity in subchondral bone, an | | | appearance consistent with bone contusion or early osteochondritis | | | dissecans. The latter seems more likely as no lesion is seen on the | | | apposing surface of the tibia. Two vitamin E markers have bee | | | placed along the medial aspect of the ankle. We do not identify | | | disruption of the tendon of the posterior tibialis muscle or of other | | | tendons on the medial aspect of the ankle. There is, however, fluid | | | surrounding the flexor hallucis longus in plantar aspect of the | | | hindfoot, likely signifying tenosynovitis of this structure. A small | | | amount of fluid seen at the posterior aspect of the distal tibia is | | | thought to be physiologic. No abnormal signal intensity is | | | identified in soft tissues of the foot otherwise. IMPRESSION 1. | | | No disruption or abnormal signal intensity is seen in the tendon of | | | the posterior tibialis. 2. There is tenosynovitis of the flexor | | | hallucis longus with fluid surrounding the tendon at the apex of | | | the plantar arch. 3. 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 Read by | | | JAS LÓPEZ MD 09/17/2008 08:29 A Electronically Signed by | | | JAS LÓPEZ MD 09/17/2008 07:27 P A | | | A COLE/carlos [email or web address]/[id number]/ cc: JAS STEWARD MD | | | JAS LÓPEZ MD REFERRED SELF | | + + + + + | Procedure Note | + + | Barron Monique - 04/01/2019 3:49 AM PDT | | [id number] Page 1 | | RADIOLOGY / | | O/P | | [facility] NAME: HIEN ZEN Rojas | | [place] [address] | | | | DATE OF : 1965 | | | | ORDER NUMBER: [id number] | | EXAM DATE/TIME: 09/16/2008 11:37 A | | ORDERING PHYSICIAN: SELF, REFERRED | | ORDER DETAIL: [id number] / / OMR | | EXAM DESCRIPTION: MRI ANKLE RIGHT UNENHANCED | | | | MRI RIGHT ANKLE UNENHANCED 09/16/2008 | | | | HISTORY | | Pain, medial right ankle. | | | | COMPARISON | | None. | | | | TECHNIQUE | | Using a 1.5 Kailey field strength magnet, T1 and STIR images in axial, | | sagittal, and coronal planes were obtained without gadolinium contrast. | | | | FINDINGS | | In general, the bone marrow signal intensity in the distal tibia, distal | | fibula, calcaneus, and tarsal and metatarsal bones is within normal | | limits. The exception is the talus. In the medial aspect of the talar | | dome, there is increased T2 signal intensity in subchondral bone, an | | appearance consistent with bone contusion or early osteochondritis | | dissecans. The latter seems more likely as no lesion is seen on the | | apposing surface of the tibia. | | | | Two vitamin E markers have bee placed along the medial aspect of the | | ankle. We do not identify disruption of the tendon of the posterior | | tibialis muscle or of other tendons on the medial aspect of the ankle. | | There is, however, fluid surrounding the flexor hallucis longus in | | plantar aspect of the hindfoot, likely signifying tenosynovitis of this | | structure. A small amount of fluid seen at the posterior aspect of the | | distal tibia is thought to be physiologic. | | | | No abnormal signal intensity is identified in soft tissues of the foot | | otherwise. | | | | IMPRESSION | | 1. No disruption or abnormal signal intensity is seen in the tendon of | | the posterior tibialis. | | 2. There is tenosynovitis of the flexor hallucis longus with fluid | | surrounding the tendon at the apex of the plantar arch. | | 3. Bone contusion or early osteochondritis desiccans in the lateral | | aspect of the talar dome. | | | | | | Read by | | JAS LÓPEZ MD 09/17/2008 08:29 A | | Electronically Signed by | | JAS LÓPEZ MD 09/17/2008 07:27 P | | | | A | | A | | COLE/carlos manuel/[id number]/ | | cc: JAS STEWARD MD | | JAS LÓPEZ MD | | REFERRED SELF | + + documented in this encounter Visit Diagnoses + + | Diagnosis | + + | Unspecified disorder of ankle and foot joint | + + documented in this encounter"
--- OUTSIDE RECORDS SUMMARY | ~2019-08-15 | XMS | Encounter Summary ---
Demographics + + + | Address | [address] | | | [place] [address] | + + + | Home Phone | | + + + | Preferred Language | Unknown | + + + | Marital Status | | + + + | Jewish Affiliation | Unknown | + + + | Race | Unknown | + + + | Ethnic Group | Unknown | + + + Author + + + | Author | [facility] | | | and [place] | + + + | Organization | [facility] | | [...] Team Providers + +------+ + | Care Cigar Tobacco Processing Supervisor Name | Role | Phone | [...] + + | 09/25/ | Emergency | [facility] | Musa Najera, | Blunt head trauma, | | 2018 | | [facility] | [place] [address] | initial encounter | | | | CENTER [address] | [place] | (Primary Dx); | | | | [place] | [address] | Concussion without | | | | [address] | | loss of | | | | [phone] | | consciousness, | | | | [...] be sent through Care Everywhere.Concussion, Aft er (Sri Lankan)documented in this encounter Medications at Time of [...]
--- OUTSIDE RECORDS SUMMARY | ~2019-08-15 | XMS | Encounter Summary ---
Demographics + + + | Address | [address] | | | [place] [address] | + + + | Home Phone | | + + + | Preferred Language | Unknown | + + + | Marital Status | | + + + | Uatsdin Affiliation | Unknown | + + + | Race | Unknown | + + + | Ethnic Group | Unknown | + + + Author + + + | Author | [facility] | | | and [place] | + + + | Organization | [facility] | | [...] Team Providers + +------+ + | Care Accounting Machine Operator Name | Role | Phone [...] | | | | | [place] [address] | [address] | | | | | [phone] | | | +--------+ + + + [...]
--- OUTSIDE RECORDS SUMMARY | ~2019-08-15 | XMS | Encounter Summary ---
Demographics + + + | Address | [address] | | | [place] [address] | + + + | Home Phone | | + + + | Preferred Language | Unknown | + + + | Marital Status | | + + + | Gnosticist Affiliation | Unknown | + + + | Race | Unknown | + + + | Ethnic Group | Unknown | + + + Author + + + | Author | [facility] | | | and [place] | + + + | Organization | [facility] | | [...] Team Providers + +------+ + | Care Renewable Energy Technician Name | Role | Phone | + +------+ + PCP | Unavailable | + +------+ + Encounter Details +--------+ + + + + | Date | Type | Department | Care Team | Description | +--------+ + + + + | 06/28/ | Hospital | [facility] | | | | 1998 | Encounter | MED CTR XRAY [address] | | | | | | [address] | | | | | | [place] [address] | | | | | | [phone] | | | +--------+ + + + [...]
--- OUTSIDE RECORDS SUMMARY | ~2019-08-15 | XMS | Encounter Summary ---
Demographics + + + | Address | [address] | | | [place] [address] | + + + | Home Phone | | + + + | Preferred Language | Unknown | + + + | Marital Status | | + + + | Pentecostal Affiliation | Unknown | + + + [...] Team Providers + +------+ + | Care Diamond Sander Name | Role | Phone | + [...] Description | +--------+---------+ + + + | 05/04/ | Office | [facility] | Shelley Robledo | Head injury, acute, | | 2018 | Visit | [facility] | [place] [address] | without loss of | | | | [place] [address] [place] | consciousness, | | | | [address] [place] | [place] [address] | initial encounter | | | | [place] | [phone] | (Primary Dx); Place | | | | [address] | | of occurrence, | | | | [phone] | | industrial places | | | [...] + + + | Blood Pressure | 136/70 | 05/04/2018 10:34 AM | | | | | PDT | | + + + + + | Pulse | 62 | 05/04/2018 10:34 AM | | | | | PDT | | + + + + + | Temperature | 36.5 C (97.7 F) | 05/04/2018 10:34 AM | | | | | PDT [...] Weight | 103.4 kg (228 lb) | 05/04/2018 10:34 AM | | | | | PDT | | + + + + + | Height | 180.3 cm (5' 11") | 05/04/2018 10:34 AM | | | | | PDT | | + + + + + | Body Mass Index | 31.8 | 05/04/2018 10:34 AM | | | | | PDT | | + + + + + documented in this encounter Progress Notes Shelley Robledo MD - 05/04/2018 10:30 AM PDTEmployer: James harris Guarantor: LISA Date of injury: 04/27/18 Claim number: [id number] Chief complaint: Follow-up head injury Subjective: Injured workers a 52-year-old male who presents today, worked into my schedule, initial ethan luation by me, for continuation of care for work-related injury. He states on the date of i nj he was attempting to use a pressurized water hose, diagnosis were mixed up, he turned on the water and one of the hoses began spraying water, and the metal valve on the end of hose was thrashing about and struck him on the top of the right head. He did not lose con sciousness and was not dazed. He did have a small abrasion to the top of the head that was bleeding. He was dictated the emergency department in [place], evaluated and released wit hout specific treatment. Slept most of the weekend. returned to work on Monday, had a fair ly continuous headache all day. Because of this he was referred to the urgent care, he proc eeded to the urgent care where he was told that they could not evaluate head injuries and he should go to the emergency department. He went to the emergency department, states they we re backed up several hours so he went home, the following day he continued to have headache with increased nausea without vomiting, and return to the ED for evaluation. A CT scan of t he head was performed and reported to be negative for acute injury. He was placed off work 3 days, then return to modified duty and referred here for continued care. Since that time he has had complete resolution of all symptoms and feels that he can be returned to his job of injury and presents today for that release. He no longer has any headache, has no nausea or vomiting, no dizziness or gait disturbance. No light or sound sensitivity. Vision has been normal. Sleep and mood have been normal. No memory disturbances or problems with conc entration. Has been working in a light duty position but feels he can be returned to his estelita b of injury. No prior significant head injury. No neck pain or symptoms with this incident and no other injury sustained with this incident. Past medical history, past surgical history, family history, social history, medications, a llergies reviewed Review of systems: As per HPI Objective: Vital signs as noted, nursing notes reviewed. Zsqrbke-dzgf-fqdjtlzwt, well-nourished, in no apparent distress, pleasant cooperative. HEENT-normocephalic. Small scabbed area on the right frontoparietal scalp without surround ing erythema, induration or tenderness. No open wounds identified. No scalp tenderness or palpable deformity. PERRLA, EOMI, conjunctiva pink and moist. TMs and canals clear bilater ally, no hemotympanum. No nasal drainage. No malocclusion. Neck-normal to inspection. No paraspinous muscle spasticity. No vertebral point tendernes s, crepitus, or step-off, supple, nontender, no lymphadenopathy or thyromegaly. Full range of motion without limitation. Cardiovascular-regular rate rhythm without murmur rub or gallop. Lungs-clear to auscultation bilaterally. Neuro-cranial nerves II through XII grossly intact. Normal YONY, finger to nose, heel toe w alk. Negative Romberg. Gait steady and symmetric and nonantalgic. Imaging/diagnostics: None indicated this visit. Reports of previous imaging studies reviewed. Pending interventions: Continue conservative management. Assessment: 1. Head injury Plan: Improved. Trial of returning to regular work responsibilities. Follow-up in 2-3 weeks to recheck progress, anticipate claims closure at that time pending no interim developments. R eturn sooner for acute worsening or other concerns. He voices understanding and agreement. E: Regular duty R: None Impairment undetermined at this point in time, based on current objective findings it is no t an anticipated consequence of this injury however patient has not yet reached MMI status. This note was dictated using [employer] voice recognition software. Occasional wrong- word or sound-alike substitutions may have occurred due to the inherent limitations of voice recogni tion software. Please read the chart carefully and recognize, using context, where these ricks bstitutions have occurred. documented in th is encounter Plan of Treatment Not on filedocumented as of this encounter Visit Diagnoses + + | Diagnosis | + + | Head injury, acute, without loss of consciousness, initial encounter - Primary | + + | Place of occurrence, industrial places and premises | + + documented in this encounter
--- OUTSIDE RECORDS SUMMARY | ~2019-08-15 | XMS | Clinical Summary ---
Demographics + + + | Address | [address] | | | [place] [address] | + + + | Home Phone | | + + + | Preferred Language | Unknown | + + + | Marital Status | | + + + | Restorationism Affiliation | Unknown | + + + | Race | Unknown | + + + | Ethnic Group | Unknown | + + + Author + + + | Author | [facility] [employer] (Historical as of | | | 03-23-19) | + + + | Organization | [facility] [employer] (Historical as of | | | 03-23-19) | + + + | Address | Unknown | + + + | Phone | Unavailable | + + + Support + + + + + | Name | Relationship | Address | Phone | + + + + + | Val Owens | ECON | [address] | | | | | [place] | | | | | [address] | | + + + + + Care Team Providers + +------+ + | Care Cob Sawyer Name | Role | Phone | + +------+ + | Dr. Jacob | PP | Unavailable | + +------+ + Allergies Not on File Current Medications Not on file Active Problems Not on file Social History + +-------+ +--------+------+ | Tobacco [...] on file | | + + + Plan of Treatment Not on file Results Not on filefrom Last 3 Months"
--- OUTSIDE RECORDS SUMMARY | ~2019-08-15 | XMS | Encounter Summary ---
Demographics + + + | Address | [address] | | | [place] [address] | + + + | Home Phone | | + + + | Preferred Language | Unknown | + + + | Marital Status | | + + + | Congregational Affiliation | Unknown | + + + | Race | Unknown | + + + | Ethnic Group | Unknown | + + + Author + + + | Author | [facility] | | | and [place] | + + + | Organization | [facility] | | | [...] Team Providers + +------+ + | Care Orthopedic Shoes Salesperson Name | Role | Phone | + +------+ + PCP | Unavailable | + +------+ + Encounter Details +--------+ + + + + | Date | Type | Department | Care Team | Description | +--------+ + + + + | 02/07/ | Hospital | [facility] | | | | 1997 | Encounter | [facility] EM[facility] | | | | | | [address] | | | | | | [place] | | | | | | [address] | | | | | | [phone] | | | +--------+ + + + [...]
--- OUTSIDE RECORDS SUMMARY | ~2019-08-15 | XMS | Encounter Summary ---
Demographics + + + | Address | [address] | | | [place] [address] | + + + | Home Phone | | + + + | Preferred Language | Unknown | + + + | Marital Status | | + + + | Yazdanism Affiliation | Unknown | + + + | Race | Unknown | + + + | Ethnic Group | Unknown | + + + Author + + + | Author | [facility] | | | and [place] | + + + | Organization | [facility] | | | [...] Team Providers + +------+ + | Care Flower Pot Press Operator Name | Role | Phone | + +------+ + PCP | Unavailable | + +------+ + Encounter Details +--------+ + + + + | Date | Type | Department | Care Team | Description | +--------+ + + + + | 02/26/ | Hospital | [facility] | | | | 1993 | Encounter | MED CTR EM[facility] | | | | | | [address] | | | | | | [place] | | | | | | [address] | | | | | | [phone] | | | +--------+ + + + [...]
--- OUTSIDE RECORDS SUMMARY | ~2019-08-15 | XMS | Encounter Summary ---
Demographics + + + | Address | [address] | | | [place] [address] | + + + | Home Phone | | + + + | Preferred Language | Unknown | + + + | Marital Status | | + + + | Mu-Ism Affiliation | Unknown | + + + | Race | Unknown | + + + | Ethnic Group | Unknown | + + + Author + + + | Author | [facility] | | | and [place] | + + + | Organization | [facility] | | | [...] Team Providers + +------+ + | Care Marine Services Technician Name | Role | Phone | + +------+ + | No, Physician | PCP | Unavailable | + +------+ + Reason for Referral Evaluate & Treat (Routine) + + + + + + + | Status | Reason | Specialty | Diagnoses / | Referred By | Referred To | | | | | Procedures | Contact | Contact | + + + + + + + | Authorized | Specialty | Orthopedic | Diagnoses | Tasha, | [place], | | | Services | Surgery | Sprain of | Sky Correa, | Rajendra Thapa MD | | | Required | | medial | DO [address] | | | | | collateral | [address] | [address] | | | | | ligament of | [place], | [place], [place] | | | | | right knee, | [place] [address] | [address] Phone: | | | | | initial | Phone: | [phone] | | | | | encounter | [phone] | Fax: | | | | | Procedures | Fax: | [phone] | | | | | 07/23 > | [phone] | | | | | | PENDING | | | | | | | SCHEDULING | | | + + + + + + + Reason for Visit + + + | Reason | Comments | + + + | Knee Pain | partial knee replacement 2009 exacerbation of knee pain x2 days | | | unknown cause swollen 02/13 pain constant | + + + Encounter Details +--------+---------+ + + + | Date | Type | Department | Care Team | Description | +--------+---------+ + + + | 04/03/ | Office | [facility] | Sky Cordova | Sprain of medial | | 2019 | Visit | CARE [address] | B, DO [address] | collateral ligament | | | | [place] | [address] [place] | of right knee, | | | | [address] | [address] | initial encounter | | | | [phone] | | (Primary Dx); | | | | | | Contusion of right | | | | | | knee, initial | | | | | | encounter | +--------+---------+ + + + Social History [...] + + + | Blood Pressure | - | - | | + [...] in this encounter Patient Instructions Patient Instructions Sky Cordova DO - 04/03/2019 2:00 PM PDT Knee Sprain of the Collateral Ligaments The knee is a hinge joint supported by four strong ligaments. The two ligaments inside the knee protect this joint from excess forward and backward movement. The ligaments on the outs micky of the joint prevent pfgn-no-chqd motion. These are called the collateral ligaments. The medial collateral ligament is located on the inner side of the joint; and the lateral c ollateral ligament is on the outer side of the joint. A sprain is a tearing of a ligament. The tear may be partial or complete. Diagnosis is made by physical exam. In the case of an acute injury, the knee may be too swollen or painful to examine fully. A more accurate exam can be done after the initial swelling goes down. Symptoms of a knee sprain include immediate knee swelling, pain, and difficulty walking.I nitial treatment includes rest, splinting the knee to reduce movement of the joint, and icin g the knee to reduce swelling and pain.You may fxdqxct-fac-trowgup pain medicineto con trol pain, unless another medicine was prescribed.Most sprains will heal in3 to 6weeks .A severe injury can take 3 to 4 months to heal. You may also need rehab exercises. Surger y is usually not required for sprains involving only the collateral ligaments. Home care Stay off the injured leg as much as possible until you can walk on it without pain. If y ou have a lot of pain while walking, crutches or a walker may be prescribed. These can be re nted or purchased at many pharmacies and surgical or orthopedic supply stores. Follow your [facility] provider s advice about when to begin bearing weight on that leg. If you were given a exhn-dee-zxyz closure knee brace, you can remove it to bathe. But le ave it in place when walking, sitting, or lying down unless told otherwise. Apply an ice pack over the injured area for 15 to 20 minutes every3 to 6hours. You s hould do this forthe first24 to 48 hours.You can make an ice pack by filling a plastic bag that seals at the top with ice cubes and then wrapping it with a thin towel.Continue to use ice packs for relief of pain and swelling as needed. As the ice melts, be careful to avoid getting your wrap, splint, or cast wet. You can place the ice pack directly over the s plint. If you have to wear a mhxc-ozp-kfunzung brace, you can open it to apply the ice pac k, or heat, directly to the knee. Never put ice directly on the skin. Always wrap the ice in a towel or other type of cloth. You may dyekhrp-tyt-pietkih pain medicineto control pain, unless another pain medici ne was prescribed.Anti-inflammatory pain medicines, such as ibuprofen or naproxen may be m ore effective than acetaminophen.If you have chronic liver or kidney disease or ever had a stomach ulcer or gastrointestinal bleeding, talk with your healthcare provider beforeusin g these medicines. Follow-up care Follow up with your healthcare provider as advised. Any X-rays you had today don t show a ny broken bones, breaks, or fractures. Sometimes fractures don t show up on the first X-ra y. Bruises and sprains can sometimes hurt as much as a fracture. These injuries can take jeimy e to heal completely. If your symptoms don t improve or they get worse, talk with your [facility] provider. You may need a repeat X-ray or other tests such as MRI.If X-rays were ta waldo, you will be told of any new findings that may affect your care. Call 911 Call 911 if you have: Shortness of breath Chest pain When to seek medical advice Call your healthcare provider right awayif any of these occur: Pain or swelling increases Swelling, redness, or pain in the calf or thigh Date Last Reviewed: 12/05/201719991286-3809 [employer]. [address] [place] [address]. All righ ts reserved. This information is not intended as a substitute for professional medical care. Always follow your healthcare professional's instructions. Knee Sprain A sprain is an injury to the ligaments or capsule that holds a joint together. There are no broken bones. Most sprains take 3 to 6 weeks to heal. If it a severe sprain where the ligam ent is completely torn, it can take months to recover. Most knee sprains are treated with a splint, knee immobilizer brace, or elastic wrap for ricks pport. Severe sprains may rarely require surgery. Home care Stay off the injured leg as much as possible until you can walk on it without pain. If y ou have a lot of pain with walking, crutches or a walker may be prescribed. (These can be re nted or purchased at many pharmacies and surgical or orthopedic supply stores). Follow your healthcare provider's advice about when to begin putting weight on that leg. Keep your leg elevated to reduce pain and swelling. When sleeping, place a pillow under the injured leg. When sitting, support the injured leg so it is above heart level. This is v alonso important during the first 48 hours. Apply an ice pack over the injured area for 15 to 20 minutes every3 to 6hours. You s hould do this forthe first24 to 48 hours.You can make an ice pack by filling a plastic bag that seals at the top with ice cubes and then wrapping it with a thin towel. Continue t o use ice packs for relief of pain and swelling as needed. As the ice melts, be careful to a void getting your wrap, splint, or cast wet. After 48 hours, apply heat(warm shower orwa rm bath)for 15 to 20 minutes several times a day, or alternate ice and heat.You can plac e the ice pack directly over the splint. If you have to wear a pxxz-teu-psaahezr brace, yo u can open it to apply the ice pack, or heat, directly to the knee. Never put ice directly o n the skin. Always wrap the ice in a towel or other type of cloth. You may eosggvz-qhr-vtxctdb pain medicineto control pain, unless another pain medici ne was prescribed. If you have chronic liver or kidney disease or ever had a stomach ulcer o r gastrointestinal bleeding, talk with your healthcare provider beforeusing these medicine s. If you were given a splint, keep it completely dry at all times. Bathe with your splint out of the water, protected with2 large plastic bags, sealed with rubber bands or tape at the top end. If a fiberglass splint gets wet, you can dry it with a chair spring assembler set to cool. If you have uhiqe-okw-fsulqyzo brace, you can remove this to bathe, unless told otherwis e. Follow-up care Follow up with your doctor as advised. Any X-rays you had today don t show any broken bon es, breaks, or fractures. Sometimes fractures don t show up on the first X-ray. Bruises an d sprains can sometimes hurt as much as a fracture. These injuries can take time to heal com pletely. If your symptoms don t improve or they get worse, talk with your doctor. You may need a repeat X-ray.If X-rays were taken, you will be told of any new findings that may af fect your care. Call 911 Call 911 if you have: Shortness of breath Chest pain When to seek medical advice Call your healthcare provider right awayif any of these occur: Thesplintor knee immobilizerbracebecomes wet or soft The fiberglass cast or splint remains wet for more than 24 hours Pain or swelling increases The injured legortoes become cold, blue, numb, or tingly Date Last Reviewed: 12/05/201719996952-8564 [employer]. [address] [place] [address]. All righ ts reserved. This information is not intended as a substitute for professional medical care. Always follow your healthcare professional's instructions. documented in this encounter Progress Notes Janina Menjivar RN - 04/03/2019 2:00 PM PDTTall Adult Crutches provided and fitted. 16 inc h Tri Panel Knee Immobilizer applied prior to discharge.VIVIAN paperwork signed by Mr. Katrin Menjivar RN cSky Shaffer D O - 04/03/2019 2:00 PM PDT Subjective: Chief Complaint: Knee Pain (partial knee replacement 2009 exacerbation of knee pain x2 days unknown cause swollen 7/10 pain constant ) HPI 53-year-old male presents to the urgent care clinic with right knee pain and swelling. He is uncertain exactly how he hurt his right knee, whether it was at work or at home. He does not remember a specific incident where he twisted the knee or had any trauma to the knee. Does have a history of a partial knee replacement that was done 10 years ago in [facility]. He denies having any proximal injury to the right hip or distal injury to the ankl e or foot. He has good distal pulses and normal sensorium. He is having pain on the medial aspect of the right knee with valgus stress testing. Unable to perform anterior drawer, du e to swelling in the knee and pain. Patient denies any other medical concerns today. Patient's medications, allergies, past medical, surgical, social and family histories were reviewed and updated as appropriate. Review of Systems Constitutional: Negative for chills and fever. HENT: Negative for congestion and sore throat. Respiratory: Negative for cough and wheezing. Cardiovascular: Negative for chest pain. Gastrointestinal: Negative for abdominal pain, nausea and vomiting. Genitourinary: Negative for dysuria. Musculoskeletal: Positive for joint pain. Negative for falls and myalgias. Skin: Negative for rash. Objective: Pulse 82 | Temp 36.8 C (98.2 F) (Temporal) | Resp 16 | Wt 106.9 kg (235 lb 10.8 oz) | SpO2 95% | BMI 32.87 kg/m Physical Exam Constitutional: He is oriented to person, place, and time. He appears well-developed and we ll-nourished. HENT: Right Ear: External ear normal. Left Ear: External ear normal. Mouth/Throat: Oropharynx is clear and moist. Eyes: Pupils are equal, round, and reactive to light. EOM are normal. Neck: Normal range of motion. Neck supple. Cardiovascular: Normal heart sounds. Pulmonary/Chest: Breath sounds normal. Abdominal: Soft. Musculoskeletal: He exhibits tenderness. He exhibits no deformity. Knee with medial tenderness to palpation along the medial collateral ligament and associate d swelling. There is no erythema or warmth. Limited range of motion due to pain Lymphadenopathy: He has no cervical adenopathy. Neurological: He is alert and oriented to person, place, and time. No cranial nerve deficit . Skin: Skin is warm. Nursing note and vitals reviewed. Assessment and Plans: Right knee sprain: The patient in a knee immobilizer and give him crutches. Continue use of Motrin or Tylenol for swelling and pain. We also discussed rice treatment for pain control. He is a referra l back to the orthopedic surgeon he saw 10 years ago for his partial knee replacement. I al so encouraged him to make sure that he elevated the need to help decrease swelling. Patient agrees with this shared medical decision making. This note or portions of this note have been dictated using [employer] oftware. It will be reviewed for major content but may contain mistakes due to difficulties with voice recognition software. documented in thi s encounter Plan of Treatment + + +--------+ + + | Name | Type | Priori | Associated Diagnoses | Order Schedule | | | | ty | | | + + +--------+ + + | Orthopedic Surgery, | Outpatient | Routin | Sprain of medial | Ordered: 04/03/2019 | | External - AMB | Referral | e | collateral ligament | | | Referral | | | of right knee, | | | | | | initial encounter | | + + +--------+ + + documented as of this encounter Procedures + +--------+ [...] [facility] | | trauma COMPARISON: RADIOGRAPHS 2008 FINDINGS: Unicompartmental | | | arthroplasty hardware [...] Note | + + | Barron Monique Results In - 04/03/2019 10:23 PM PDT THREE VIEWS RIGHT KNEE 04/03/2019 4:00 | | PMCLINICAL HISTORY: traumaCOMPARISON: RADIOGRAPHS 2008FINDINGS: Unicompartmental | | arthroplasty hardware is now [...] + | Diagnosis | + + | Sprain of medial collateral ligament of right knee, initial encounter - Primary | + + | Contusion of right knee, initial encounter | + + documented in this encounter"
--- OUTSIDE RECORDS SUMMARY | ~2019-08-15 | XMS | Encounter Summary ---
Demographics + + + | Address | [address] | | | [place] [address] | + + + | Home Phone | | + + + | Preferred Language | Unknown | + + + | Marital Status | | + + + | Yazdanism Affiliation | Unknown | + + + | Race | Unknown | + + + | Ethnic Group | Unknown | + + + Author + + + | Author | [facility] | | | and [place] | + + + | Organization | [facility] | | | [...] Team Providers + +------+ + | Care Electron Beam Welder Setter Name | Role | Phone | + [...] Description | +--------+---------+ + + + | 06/21/ | Office | [facility] [place] | Shelley Robledo | Closed head injury | | 2018 | Visit | [facility] | MD [place] [address] | without loss of | | | | [place] [address] [place] | consciousness, | | | | [address] [place] | [place] [address] | subsequent encounter | | | | [place] | [phone] | (Primary Dx); Place | | | | [address] | | of occurrence, | | | | [phone] | | industrial places | | | [...] + + + | Blood Pressure | 119/82 | 06/21/2018 8:47 AM | | | | | PST | | + + + + + | Pulse | 62 | 06/21/2018 8:47 AM | | | | | PST | | + + + + + | Temperature | 36.9 C (98.5 F) | 06/21/2018 8:47 AM | | | | | PST [...] Weight | 103.4 kg (228 lb) | 06/21/2018 8:47 AM | | | | | PST | | + + + + + | Height | 180.3 cm (5' 11") | 06/21/2018 8:47 AM | | | | | PST | | + + + + + | Body Mass Index | 31.8 | 06/21/2018 8:47 AM | | | | | PST | | + + + + + documented in this encounter Progress Notes Shelley Robledo MD - 06/21/2018 9:00 AM PSTEmployer: [employer] Guarantor: LISA Date of injury: 04/27/18 Claim number: [id number] Chief complaint: Follow-up head injury Subjective: Injured workers a 53-year-old male presents today for scheduled follow-up. Since his last visit he has done well. Continues to feel a pressure-like sensation in the head intermitten tly, relieved with rest. No further episodes of syncope, no dizziness, mood, thought proces ses and memory have been normal. He did have an independent medical examination with the mt urologist, 06/14/18. The report of this is not yet available for review. He has not yet bee n returned to work because of the syncopal episodes. Past medical history, medications, allergies reviewed Review of systems: As per HPI Objective: Vital signs as noted, nursing notes reviewed. Fhyeixz-arlm-bulgazzqj, well-nourished, in no apparent distress, pleasant cooperative. Psych-mood, affect, speech and thought processes appropriate Imaging/diagnostics: None indicated this visit Pending interventions: Continue conservative management. Assessment: 1. Head injury 2. Syncope Plan: Await report of the neurological independent medical examination. He'll remain off work in the interim until we can review this. Continue symptomatic treatment for now and recommend ations of no driving remain in place. He'll return here in 3-4 weeks, sooner for acute wors ening or other concerns. He voices understanding and agreement. E: Off work R: Off work Impairment undetermined at this point in time, based on current objective findings it is no t an anticipated consequence of this injury however patient has not yet reached MMI status. This note was dictated using [employer] voice recognition software. Occasional wrong- word or [...]
--- OUTSIDE RECORDS SUMMARY | ~2019-08-15 | XMS | Encounter Summary ---
Demographics + + + | Address | [address] | | | [place] [address] | + + + | Home Phone | | + + + | Preferred Language | Unknown | + + + | Marital Status | | + + + | Jewish Affiliation | Unknown | + + + | Race | Unknown | + + + | Ethnic Group | Unknown | + + + Author + + + | Author | [facility] | | | and [place] | + + + | Organization | [facility] | | | [...] Team Providers + +------+ + | Care Nursing Faculty Name | Role | Phone | + +------+ + PCP | Unavailable | + +------+ + Encounter Details +--------+ + + + + | Date | Type | Department | Care Team | Description | +--------+ + + + + | 09/16/ | Hospital | [facility] | Jas Steward | Unspecified Disorder | | 2008 | Encounter | CONVERSION DEP [address] | [address] | of Ankle and Foot | | | | [address] | [address] | Joint | | | | [place] | [place] [address] | | | | | [address] | [phone] | | | | | [phone] | | | +--------+ + + + [...] Performed At | + + + | [id number] | | | Page 1 RADIOLOGY | | | / | | | O/P [facility] | | | NAME: [place] [address] | | | | | | | | | DATE OF : 1965 ORDER NUMBER: [id number] | | | EXAM DATE/TIME: 09/16/2008 11:37 [...] P A | | | A COLE/carlos manuel/[id number]/ cc: JAS STEWARD MD | | | JAS LÓPEZ MD REFERRED SELF | | + + + + + | Procedure Note | + + | Barron Monique - 04/01/2019 3:49 AM PDT | | [id number] Page 1 | | RADIOLOGY / | | O/P | | [facility] NAME: HIEN ZEN Rojas | | [place] [address] | | | | DATE OF : 1965 | | | | ORDER NUMBER: [id number] | | EXAM DATE/TIME: 09/16/2008 11:37 A [...] A | | A | | COLE/carlos manuel/[id number]/ | | cc: JAS STEWARD MD | | JAS LÓPEZ MD | | REFERRED SELF | + + documented in this encounter Visit Diagnoses + + | Diagnosis | + + | Unspecified disorder of ankle and foot joint | + + documented in this encounter"
--- OUTSIDE RECORDS SUMMARY | ~2019-08-15 | XMS | Encounter Summary ---
Demographics + + + | Address | [address] | | | [place] [address] | + + + | Home Phone | | + + + | Preferred Language | Unknown | + + + | Marital Status | | + + + | Protestant Affiliation | Unknown | + + + | Race | Unknown | + + + | Ethnic Group | Unknown | + + + Author + + + | Author | [facility] | | | and [place] | + + + | Organization | [facility] | [...] Team Providers + +------+ + | Care Nurse Substance Abuse Name | Role | Phone | + +------+ + PCP | Unavailable | + +------+ + Encounter Details +--------+ + + + + | Date | Type | Department | Care Team | Description | +--------+ + + + + | 02/04/ | Hospital | [facility] | | | | 1994 | Encounter | MED CTR EM[facility]Y | | | | | | [address] | | | | | | [place] | | | | | | [address] | | | | | | [phone] | | | +--------+ + + + [...]
--- OUTSIDE RECORDS SUMMARY | ~2019-08-15 | XMS | Encounter Summary ---
Demographics + + + | Address | [address] | | | [place] [address] | + + + | Home Phone | | + + + | Preferred Language | Unknown | + + + | Marital Status | | + + + | Latter-Day Affiliation | Unknown | + + + | Race | Unknown | + + + | Ethnic Group | Unknown | + + + Author + + + | Author | [facility] | | | and [place] | + + + | Organization | [facility] | | | and [...] Team Providers + +------+ + | Care Greens Planter Name | Role | Phone | + +------+ + PCP | Unavailable | + +------+ + Encounter Details +--------+ + + + + | Date | Type | Department | Care Team | Description | +--------+ + + + + | 07/07/ | Hospital | [facility] | | | | 2007 - | Encounter | MED CTR OP REHAB | | | | | | [address] [place] | | | | 08/06/ | | [place] [address] | | | | 2007 | | [phone] | | | +--------+ + + + [...]
--- OUTSIDE RECORDS SUMMARY | ~2019-08-15 | XMS | Encounter Summary ---
Demographics + + + | Address | [address] | | | [place] [address] | + + + | Home Phone [...] Team Providers + +------+ + | Care Yoghurt Maker Name | Role | Phone | + +------+ + PCP | Unavailable | + +------+ + Encounter Details +--------+ + + + + | Date | Type | Department | Care Team | Description | +--------+ + + + + | 12/03/ | Hospital | [facility] | | | | 2002 | Encounter | MED CTR EMERGENCY | | | | | | [address] | | | | | | [place] | | | | | | [address] | | | | | | [phone] | | | +--------+ + + + [...]
--- OUTSIDE RECORDS SUMMARY | ~2019-08-15 | XMS | Encounter Summary ---
Demographics + + + | Address | [address] | | | [place] [address] | + + + | Home Phone | | + + + | Preferred Language | Unknown | + + + | Marital Status | | + + + | Uatsdin Affiliation | Unknown | + + + | Race | Unknown | + + + | Ethnic Group | Unknown | + + + Author + + + | Author | [facility] | | | and [place] | + + + | Organization | [facility] | | [...] Team Providers + +------+ + | Care Red Cross Executive Director Name | Role | Phone | + +------+ + PCP | Unavailable | + +------+ + Encounter Details +--------+ + + + + | Date | Type | Department | Care Team | Description | +--------+ + + + + | 02/07/ | Hospital | [facility] | | | | 1997 | Encounter | MED CTR EMERGENCY | | | | | | [address] | | | | | | [place] | | | | | | [address] | | | | | | [phone] | | | +--------+ + + + [...]
--- OUTSIDE RECORDS SUMMARY | ~2019-08-15 | XMS | Encounter Summary ---
Demographics + + + | Address | [address] | | | [place] [address] | + + + | Home Phone | | + + + | Preferred Language | Unknown | + + + | Marital Status | | + + + | Synagogue Affiliation | Unknown | + + + [...] Team Providers + +------+ + | Care Skin Diver Name | Role | Phone | + +------+ + | No, Physician | PCP | Unavailable | + +------+ + Reason for Visit + + + | Reason | Comments | + + + | Work Related Injury | Follow up head injury, was seen at [facility], was not tested | | | for concussion but he has been having a constant headache since | | | it happened last monday and he has been sleeping a lot over the | | | weekend RM 7 | + + + Encounter Details +--------+---------+ + + + | Date | Type | Department | Care Team | Description | +--------+---------+ + + + | 04/30/ | Office | [facility] | Josh Henry, | Patient left after | | 2017 | Visit | CARE [address] | MD [address] | triage (Primary Dx) | | | | [place] | [place] | | | | | [address] | [address] | | | | | [phone] | | | +--------+---------+ + + + [...] + + + | Blood Pressure | 137/80 | 04/30/2018 6:17 PM | | | | | PDT | | + + + + + | Pulse | 77 | 04/30/2018 6:17 PM | | | | | PDT | | + + + + + | Temperature | 37.3 C (99.2 F) | 04/30/2018 6:17 PM | | | | | PDT | | + + + + + | Respiratory Rate | 18 | 04/30/2018 6:17 PM | | | | | PDT | | + + + + + | Oxygen Saturation | 96% | 04/30/2018 6:17 PM | | | | | PDT | | + + + + + | Inhaled Oxygen | - | - | | | Concentration | | | | + + + + + | Weight | 105 kg (231 lb 7.7 | 04/30/2018 6:17 PM | | | | oz) | PDT | | + + + + + | Height | 180.3 cm (5' 11") | 04/30/2018 6:17 PM | | | | | PDT | | + + + + + | Body Mass Index | 32.29 | 04/30/2018 6:17 PM | | | | | PDT | | + + + + + documented in this encounter Progress Notes Irene Aj RN - 04/30/2018 6:00 PM PDT This is a Rapid Triage & this patient was not seen by a physician during this triage: Chief Complaint Patient presents with Work Related Injury Follow up head injury, was seen at [facility], was not tested for concussion but he has been having a constant headache since it happened last monday and he has been sleeping a lot over the weekend RM 7 BP 137/80 | Pulse 77 | Temp 37.3 C (99.2 F) (Temporal) | Resp 18 | Ht 1.803 m (5' 1 1") | Wt 105 kg (231 lb 7.7 oz) | SpO2 96% | BMI 32.29 kg/m Relevant History related to today's visit: No past medical history on file. MD Consulted: Emergency Room has been recommended for this patient. The patient has chosen: [facility] [] Other: Reason for triage recommendation: Out of Scope of Practice or Complex Medical Needs Suspected Cardiac: [] Seizures: [] Advanced Respiratory Condition: [] Head Injury with LOC: [] Pre-Dell Problems: [] Victim of Crime: [] Child/Elder Abuse: [] Severe Abdominal Pain: [] "Worst pain in life": [] Need for IV Medication: [] After-hours Radiology Reading needs by [facility]: [] Patient with complex workup needs to close to closing time: [] Patient in need of hospital admission: [] Patient at risk if to remain in Urgent Care: [x] Patient refused assessment during triage: [] The recommended mode of transportation is: Patient/Family Transport-- Staff Transport-- EMS-- Other: Patient has Accepted or Declined these recommendations: [x] Accept [] Decline Patient/guardian signature will be scanned in to EMR *Patient has been advised to the reasons that he/she is being triaged to the ED* [x] *Report has been called to the ED charge nurse regarding triage findings* [x] Nurse's name who took report: Margy VALLE *The patient has been informed that the ED staff will be aware of his/her arrival, although patient may not be roomed immediately, they will be seen as soon as possible.* [x]Socorro solis signed by Irene Aj RN at 04/30/2018 6:36 PM PDTdocumented in this encounter Plan of Treatment Not on filedocumented as of this encounter Visit Diagnoses + + | Diagnosis | + + | Patient left after triage - Primary | + + documented in this encounter
--- OUTSIDE RECORDS SUMMARY | ~2019-08-15 | XMS | Encounter Summary ---
Demographics + + + | Address | [address] | | | [place] [address] | + + + | Home Phone | | + + + | Preferred Language | Unknown | + + + | Marital Status | | + + + | Muslim Affiliation | Unknown | + + + [...] Team Providers + +------+ + | Care Log Roper Name | Role | Phone | + +------+ + PCP | Unavailable | + +------+ + Encounter Details +--------+ + + + + | Date | Type | Department | Care Team | Description | +--------+ + + + + | 08/13/ | Hospital | [facility] | | | | 1996 - | Encounter | MED CTR GENERIC IP | | | | | | CONV DEPT [address] | | | | 08/14/ | | [place], | | | | 1996 | | [place] [address] | | | | | | [phone] | | | +--------+ + + + [...]
--- OUTSIDE RECORDS SUMMARY | ~2019-08-15 | XMS | Encounter Summary ---
Demographics + + + | Address | [address] | | | [place] [address] | + + + | Home Phone | | + + + | Preferred Language | Unknown | + + + | Marital Status | | + + + | Alevism Affiliation | Unknown | + + + | Race | Unknown | + + + | Ethnic Group | Unknown | + + + Author + + + | Author | [facility] | | | and [place] | + + + | Organization | [facility] | | | and [...] Team Providers + +------+ + | Care Consumer Marketing Manager Name | Role | Phone | + +------+ + PCP | Unavailable | + +------+ + Encounter Details +--------+ + + + + | Date | Type | Department | Care Team | Description | +--------+ + + + + | 08/01/ | Hospital | [facility] | | | | 1990 | Encounter | MED CTR EMERGENCY | | | | | | [place] [address] | | | | | | [place] | | | | | | [address] | | | | | | [phone] | | | +--------+ + + + [...]
--- OUTSIDE RECORDS SUMMARY | ~2019-08-15 | XMS | Encounter Summary ---
Demographics + + + | Address | [address] | | | [place] [address] | + + + | Home Phone | | + + + | Preferred Language | Unknown | + + + | Marital Status | | + + + | Christianity Affiliation | Unknown | + + + | Race | Unknown | + + + | Ethnic Group | Unknown | + + + Author + + + | Author | [facility] | | | and [place] | + + + | Organization | [facility] | | | and [...] Team Providers + +------+ + | Care Coffee Taster Name | Role | Phone | + +------+ + PCP | Unavailable | + +------+ + Encounter Details +--------+ + + + + | Date | Type | Department | Care Team | Description | +--------+ + + + + | 11/03/ | Hospital | [facility] | | | | 1995 | Encounter | MED CTR EMERGENCY | | | | | | [place] [address] | | | | | | [place] | | | | | | [address] | | | | | | [phone] | | | +--------+ + + + [...]
--- OUTSIDE RECORDS SUMMARY | ~2019-08-15 | XMS | Encounter Summary ---
Demographics + + + | Address | [address] | | | [place] [address] | + + + | Home Phone | | + + + | Preferred Language | Unknown | + + + | Marital Status | | + + + | Mandaen Affiliation | Unknown | + + + | Race | Unknown | + + + | Ethnic Group | Unknown | + + + Author + + + | Author | [facility] | | | and [place] | + + + | Organization | [facility] | | | and [...] Team Providers + +------+ + | Care Police Clerk Name | Role | Phone | + +------+ + PCP | Unavailable | + +------+ + Encounter Details +--------+ + + + + | Date | Type | Department | Care Team | Description | +--------+ + + + + | 02/26/ | Hospital | [facility] | | | | 1993 | Encounter | MED CTR EMERGENCY | | | | | | [place] [address] | | | | | | [place] | | | | | | [address] | | | | | | [phone] | | | +--------+ + + + [...]
--- OUTSIDE RECORDS SUMMARY | ~2019-08-15 | XMS | Encounter Summary ---
Demographics + + + | Address | [address] | | | [place] [address] | + + + | Home Phone | | + + + | Preferred Language | Unknown | + + + | Marital Status | | + + + | Druze Affiliation | Unknown | + + + | Race | Unknown | + + + | Ethnic Group | Unknown | + + + Author + + + | Author | [facility] | | | and [place] | + + + | Organization | [facility] | | | [...] Team Providers + +------+ + | Care Fat Purification Worker Name | Role | Phone | + +------+ + PCP | Unavailable | + +------+ + Encounter Details +--------+ + + + + | Date | Type | Department | Care Team | Description | +--------+ + + + + | 03/01/ | Hospital | [facility] | | | | 1993 | Encounter | MED CTR EMERGENCY | | | | | | [place] [address] | | | | | | [place] | | | | | | [address] | | | | | | [phone] | | | +--------+ + + + [...]
--- OUTSIDE RECORDS SUMMARY | ~2019-08-15 | XMS | Encounter Summary ---
Demographics + + + | Address | [address] | | | [place] [address] | + + + | Home Phone | | + + + | Preferred Language | Unknown | + + + | Marital Status | | + + + | Shinto Affiliation | Unknown | + + + | Race | Unknown | + + + | Ethnic Group | Unknown | + + + Author + + + | Author | [facility] | | | and [place] | + + + | Organization | [facility] | | | [...] Team Providers + +------+ + | Care Social Services Manager Name | Role | Phone | + +------+ + PCP | Unavailable | + +------+ + Encounter Details +--------+ + + + + | Date | Type | Department | Care Team | Description | +--------+ + + + + | 01/20/ | Hospital | [facility] | | | | 2006 | Encounter | MED CTR EMERGENCY | | | | | | [place] [address] | | | | | | [place] | | | | | | [address] | | | | | | [phone] | | | +--------+ + + + [...]
--- OUTSIDE RECORDS SUMMARY | ~2019-08-15 | XMS | Encounter Summary ---
Demographics + + + | Address | [address] | | | [place] [address] | + + + | Home Phone | | + + + | Preferred Language | Unknown | + + + | Marital Status | | + + + | Orthodoxy Affiliation | Unknown | + + + | Race | Unknown | + + + | Ethnic Group | Unknown | + + + Author + + + | Author | [facility] | | | and [place] | + + + | Organization | [facility] | | | [...] Team Providers + +------+ + | Care Hand Winder Name | Role | Phone | + +------+ + | No, Physician | PCP | Unavailable | + +------+ + Encounter Details +--------+ + + + + | Date | Type | Department | Care Team | Description | +--------+ + + + + | 04/30/ | Emergency | [facility] | No, Physician | Patient left without | | 2018 | | MED CTR EMERGENCY | | being seen (Primary | | | | [address] | | [place]) | | | | [place] | | | | | | [address] | | | | | | [phone] | | | +--------+ + + + [...]
--- OUTSIDE RECORDS SUMMARY | ~2019-08-15 | XMS | Clinical Summary ---
Demographics + + + | Address | [address] | | | [place] [address] | + + + | Home Phone | | + + + | Preferred Language | Unknown | + + + | Marital Status | | + + + | Hindu Affiliation | Unknown | + + + | Race | Unknown | + + + | Ethnic Group | Unknown | + + + Author + + + | Author | [facility] (Historical as of | | | 03-23-19) | + + + | Organization | [facility] (Historical as of | | | 03-23-19) [...] [place] | | | | | [address] | | + + + + + Care Team Providers + +------+ + | Care Saloon Keeper Name | Role | Phone | + [...]
--- OUTSIDE RECORDS SUMMARY | ~2019-08-15 | XMS | Encounter Summary ---
Demographics + + + | Address | [address] | | | [place] [address] | + + + | Home Phone | | + + + | Preferred Language | Unknown | + + + | Marital Status | | + + + | Gnosticism Affiliation | Unknown | + + + | Race | Unknown | + + + | Ethnic Group | Unknown | + + + Author + + + | Author | [facility] | | | and [place] | + + + | Organization | [facility] | | [...] Team Providers + +------+ + | Care Heel Burnisher Name | Role | Phone | + +------+ + | No, Physician | PCP | Unavailable | + +------+ + Encounter Details +--------+---------+ + + + | Date | Type | Department | Care Team | Description | +--------+---------+ + + + | 09/10/ | Office | [facility] | Shelley Robledo | Closed head injury | | 2019 | Visit | [facility] | [place] [address] | without loss of | | | | [place] [address] [place] | consciousness, | | | | [address] [place] | [facility] [place] [address] | subsequent encounter | | | | [place], [place] | [phone] | (Primary Dx); Place | | | | [address] | | of occurrence, | | | | [phone] | | industrial places | | | [...] + + documented as of this encounter Progress Shelley Turner MD - 09/10/2018 9:30 AM PSTThis is documentation of phone conversati on with enrollment manager, Shelley, regarding this injured worker. She does inquire as to the medically stationary date for the head contusion. I previously listed a medically stationa ry date at his last office visit, 07/11/18, at which time the independent medical examination was reviewed, deeming him medically stationary and finding the syncopal episode unrelated t o the head injury. While the contusion itself may have been considered medically stationary prior to this, it is my medical opinion, that until the syncopal episode was identified as either related or unrelated, this could not be definitively construed. 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 The injured work er has been provided time loss for a significant amount of time while placed off work well t his was all being determined, and this was the concern of claims management. I did indicate that I, could not change the medically stationary date based on this alone and had to take into consideration the points previously discussed. documented in this encounter Plan of Treatment Not on filedocumented as of this encounter Visit Diagnoses + + | Diagnosis | + + | Closed head injury without loss of consciousness, subsequent encounter - Primary | + + | Place of occurrence, industrial places and premises | + + documented in this encounter"
--- OUTSIDE RECORDS SUMMARY | ~2019-08-15 | XMS | Encounter Summary ---
Demographics + + + | Address | [address] | | | [place] [address] | + + + | Home Phone [...] Team Providers + +------+ + | Care Leather Production Worker Name | Role | Phone | + +------+ + PCP | Unavailable | + +------+ + Encounter Details +--------+ + + + + | Date | Type | Department | Care Team | Description | +--------+ + + + + | 11/26/ | Hospital | [facility] | | | | 1996 - | Encounter | MED CTR GENERIC OP | | | | | | CONV DEPT [address] | | | | 02/20/ | | [place], | | | | 1996 | | [place] [address] | | | | | | [phone] | | | +--------+ + + + [...]
--- OUTSIDE RECORDS SUMMARY | ~2019-08-15 | XMS | Encounter Summary ---
Demographics + + + | Address | [address] | | | [place] [address] | + + + | Home Phone | | + + + | Preferred Language | Unknown | + + + | Marital Status | | + + + | Episcopalian Affiliation | Unknown | + + + | Race | Unknown | + + + | Ethnic Group | Unknown | + + + Author + + + | Author | [facility] | | | and [place] | + + + | Organization | [facility] | | | [...] Team Providers + +------+ + | Care Industrial Controls Technician Name | Role | Phone | + +------+ + | No, Physician | PCP | Unavailable | + +------+ + Encounter Details +--------+ + + + + | Date | Type | Department | Care Team | Description | +--------+ + + + + | 03/24/ | Hospital | [facility] | Sada Douglass | Crush injury | | 2015 | Encounter | MED CTR [facility]AKELIN XRAY | DO Sangeetha Olguin | | | | | [address] | [address] [place] | | | | | [place] | [address] | | | | | [address] | | | | | | [phone] | | | +--------+ + + + [...] + + + +---------+ + + | cephalexin | Take 1 capsule by | 20 | 0 | 03/24/20 | | | (KEFLEX) 500 mg | mouth 4 times daily | capsule | | 15 | 5 | | capsule | for 5 days. | | | | | + + + +---------+ + + | | Take 1 tablet by | 16 | 0 | 03/24/20 | | | HYDROcodone-acetamin | mouth every 6 hours | tablet | | 15 | 8 | | ophen (NORCO) 5-325 | as needed for Pain. | | | | | | mg [...] + +--------+ + + + | XR FINGER RIGHT 2 + | Routin | 03/24/2015 | Crush injury | Results for this | | VW | e | 7:17 PM | | procedure are in the | | | | PDT | | results section. | + +--------+ + + + documented in this encounter Results XR Finger Right 2 [...] degenerative changes are visualized of the | [facility] | | radiocarpal joint and the distal [...] + | Kayden, Rad Results In - 03/25/2015 8:44 AM PDT [...] + + + | [address] | [address] | [place] | [phone] | | [facility] | | [address] | | | - IMAGING | | | | + + + + + documented in this encounter Visit Diagnoses + + | Diagnosis | + + | Crush injury Crushing injury of unspecified site | + + documented in this encounter"
--- OUTSIDE RECORDS SUMMARY | ~2019-08-15 | XMS | Encounter Summary ---
Demographics + + + | Address | [address] | | | [place] [address] | + + + | Home Phone | | + + + | Preferred Language | Unknown | + + + | Marital Status | | + + + | Jewish Affiliation | Unknown | + + + | Race | Unknown | + + + | Ethnic Group | Unknown | + + + Author + + + | Author | [facility] | | | and [place] | + + + | Organization | [facility] | | [...] Team Providers + +------+ + | Care Fishing Lure Assembler Name | Role | Phone | + +------+ + PCP | Unavailable | + +------+ + Encounter Details +--------+ + + + + | Date | Type | Department | Care Team | Description | +--------+ + + + + | 02/28/ | Hospital | [facility] GENERIC OP | Vaibhav Negro MD | Unspecified Internal | | 2007 | Encounter | CONVERSION [address] | NEED NEW ADDRESS | Derangement of Knee | | | | [address] | | | | | | [place] | | | | | | [address] | | | | | | [phone] | | | +--------+ + + + [...]
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
--- OUTSIDE RECORDS SUMMARY | ~2019-08-15 | XMS | Encounter Summary ---
Demographics + + + | Address | [address] | | | [place] [address] | + + + | Home Phone | | + + + | Preferred Language | Unknown | + + + | Marital Status | | + + + | Buddhism Affiliation | Unknown | + + + [...] Team Providers + +------+ + | Care Mixer Driver Name | Role | Phone | [...] | ligament of | [place], | [place], [place] | | | | | right knee, | [place] [address] | [address] Phone: | | | | | initial | Phone: | [phone] | | | | | encounter | [phone] | Fax: | | | | | Procedures | Fax: | [phone] | | | | | 07/23 > | [phone] | | | | | | PENDING [...] of right knee, | | | | [address] | [address] | initial encounter | | | | [phone] | | (Primary Dx); | | | [...] the outs micky of the joint prevent raql-ie-tdot motion. These are called the collateral ligaments. [...] knee to reduce swelling and pain.You may tspthxe-nhs-pkjnopx pain medicineto con trol pain, unless another [...] orthopedic supply stores. Follow [facility] provider s advice about when to begin bearing weight on that leg. If you were given a omqe-bzy-xhfe closure knee brace, you can remove it [...] plint. If you have to wear a ydpk-vtd-wlnbkgni brace, you can open it to apply the ice pac k, or heat, directly to the knee. Never put ice directly on the skin. Always wrap the ice in a towel or other type of cloth. You may pancotf-mjk-btohslz pain medicineto control pain, unless another pain [...] or they get worse, talk with your [facility] provider. You may need a repeat X-ray [...] the calf or thigh Date Last Reviewed: 12/05/201719998721-4046 [employer]. [address] [place] [address]. All righ ts reserved. This information is [...] splint. If you have to wear a omib-vhs-mnmocclf brace, yo u can open it to apply the ice pack, or heat, directly to the knee. Never put ice directly o n the skin. Always wrap the ice in a towel or other type of cloth. You may gzilukb-ony-etfvlyj pain medicineto control pain, unless another pain [...] wet, you can dry it with a hair spring winder set to cool. If you have pyccq-tjw-cgunqoer brace, you can remove this to bathe, [...] blue, numb, or tingly Date Last Reviewed: 12/05/201719994444-2088 [employer]. [address] [place] [address]. All righ ts reserved. This information is not intended as a substitute for professional medical care. Always follow your healthcare professional's instructions. documented in this encounter Progress Notes Janina Menjivar RN - 04/03/2019 2:00 PM PDTTall Adult Crutches provided and fitted. 16 inc h Tri Panel Knee Immobilizer applied prior to discharge.VIVIAN paperwork signed by Mr. Katrin Menjivar RN cSky Sahffer D O - 04/03/2019 2:00 PM PDT [...] that was done 10 years ago in [facility]. He denies having any proximal injury to [...] of this note have been dictated using [employer] s oftware. It will be reviewed for [...]
--- OUTSIDE RECORDS SUMMARY | ~2019-08-15 | XMS | Clinical Summary ---
Demographics + + + | Address | [address] | | | [place] [address] | + + + | Home Phone | | + + + | Preferred Language | Unknown | + + + | Marital Status | | + + + | Faith Affiliation | Unknown | + + + | Race | Unknown | + + + | Ethnic Group | Unknown | + + + Author + + + | Author | [facility] | | | and [place] | + + + | Organization | [facility] | | [...] Team Providers + +------+ + | Care Php Mysql Web Developer Name | Role | Phone | [...] + | Overview: Overview: 30+ Pack year [id number]/15/2017-patient | | declines screening CT scan.Last Assessment [...] Patient | Explanation | | | | Boat Buffer Plastic | | + + + + + | Power of | | | | | Fagoting Machine Operator | | | | + + + + + | Advance | 05/01/2018 11:51 | | | | Directive | AM | | | + + + + +
--- OUTSIDE RECORDS SUMMARY | ~2019-08-15 | XMS | Encounter Summary ---
Demographics + + + | Address | [address] | | | [place] [address] | + + + | Home Phone | | + + + | Preferred Language | Unknown | + + + | Marital Status | | + + + | Holiness Affiliation | Unknown | + + + | Race | Unknown | + + + | Ethnic Group | Unknown | + + + Author + + + | Author | [facility] | | | and [place] | + + + | Organization | [facility] | | | and [...] Team Providers + +------+ + | Care Diabetic Educator Name | Role | Phone | + +------+ + PCP | Unavailable | + +------+ + Encounter Details +--------+ + + + + | Date | Type | Department | Care Team | Description | +--------+ + + + + | 11/26/ | Hospital | [facility] | | | | 1996 - | Encounter | MED CTR GENERIC OP | | | | | | CONV DEPT [address] | | | | 02/20/ | | [place], | | | | 1996 | | [place] [address] | | | | | | [phone] | | | +--------+ + + + [...]
--- OUTSIDE RECORDS SUMMARY | ~2019-08-15 | XMS | Encounter Summary ---
Demographics + + + | Address | [address] | | | [place] [address] | + + + | Home Phone | | + + + | Preferred Language | Unknown | + + + | Marital Status | | + + + | Samaritan Affiliation | Unknown | + + + | Race | Unknown | + + + | Ethnic Group | Unknown | + + + Author + + + | Author | [facility] | | | and [place] | + + + | Organization | [facility] | | [...] Team Providers + +------+ + | Care Licensed Master Social Worker Name | Role | Phone | + +------+ + PCP | Unavailable | + +------+ + Encounter Details +--------+ + + + + | Date | Type | Department | Care Team | Description | +--------+ + + + + | 01/20/ | Hospital | [facility] | | | | 2006 | Encounter | MED CTR EMERGENCY | | | | | | [place] [address] | | | | | | [place] | | | | | | [address] | | | | | | [phone] | | | +--------+ + + + [...]
--- OUTSIDE RECORDS SUMMARY | ~2019-08-15 | XMS | Encounter Summary ---
Demographics + + + | Address | [address] | | | [place] [address] | + + + | Home Phone | | + + + | Preferred Language | Unknown | + + + | Marital Status | | + + + | Mosque Affiliation | Unknown | + + + | Race | Unknown | + + + | Ethnic Group | Unknown | + + + Author + + + | Author | [facility] | | | and [place] | + + + | Organization | [facility] | | | and [...] Team Providers + +------+ + | Care Solderer Electronic Name | Role | Phone | + [...] + + | 06/21/ | Office | [facility] [place] | Shelley Robledo | Closed head injury | | 2018 | Visit | [facility] | MD [place] [address] | without loss of | | | | [place] [address] [place] | consciousness, | | | | [address] [place] | [place] [address] | subsequent encounter | | | | [place] | [phone] | (Primary Dx); Place | | | | [address] | | of occurrence, | | | | [phone] | | industrial places | | | [...] LISA Date of injury: 04/27/18 Claim number: [id number] Chief complaint: Follow-up head injury Subjective: Injured workers a 53-year-old male presents today for scheduled follow-up. Since his last visit he has done well. Continues to feel a pressure-like sensation in the head intermitten tly, relieved with rest. No further episodes of syncope, no dizziness, mood, thought proces ses and memory have been normal. He did have an independent medical examination with the tn urologist, 06/14/18. The report of this is not yet available for review. He has not yet bee n returned to work because of the syncopal episodes. Past medical history, medications, allergies reviewed Review of systems: As per HPI Objective: Vital signs as noted, nursing notes reviewed. Lcigmqw-rirp-qdxjguyae, well-nourished, in no apparent distress, pleasant cooperative. [...] MMI status. This note was dictated using [employer] voice recognition software. Occasional wrong- word or [...]
--- OUTSIDE RECORDS SUMMARY | ~2019-08-15 | XMS | Encounter Summary ---
Demographics + + + | Address | [address] | | | [place] [address] | + + + | Home Phone | | + + + | Preferred Language | Unknown | + + + | Marital Status | | + + + | Rastafarian Affiliation | Unknown | + + + | Race | Unknown | + + + | Ethnic Group | Unknown | + + + Author + + + | Author | [facility] | | | and [place] | + + + | Organization | [facility] | | | [...] Providers + +------+ + | Care Medical Sales Associate Name | Role | Phone | + +------+ + | No, Physician | PCP | Unavailable | + +------+ + Reason for Visit + + + | Reason | Comments | + + + | Work Related Injury | Follow up head injury, was seen at [place], was not tested | | | for [...] + + | 04/30/ | Office | [facility] | Josh Henry, | Patient left after | | 2017 | Visit | CARE [address] | MD [address] | triage (Primary Dx) | | | | [place] | [place] | | | | | [address] | [address] | | | | | [phone] | | | +--------+---------+ + + + [...] Follow up head injury, was seen at [place], was not tested for concussion but he [...] for this patient. The patient [facility] [] Other: Reason for triage recommendation: Out of Scope of Practice or Complex Medical Needs Suspected Cardiac: [] Seizures: [] Advanced Respiratory Condition: [] Head Injury with LOC: [] Pre-Dell Problems: [] Victim of Crime: [] Child/Elder Abuse: [] Severe Abdominal Pain: [] "Worst pain in life": [] Need for IV Medication: [] After-hours Radiology Reading needs by [facility]: [] Patient with complex workup needs [...]
--- OUTSIDE RECORDS SUMMARY | ~2019-08-15 | XMS | Encounter Summary ---
Demographics + + + | Address | [address] | | | [place] [address] | + + + | Home Phone [...] Team Providers + +------+ + | Care Glue Wheel Operator Name | Role | Phone | [...] + + | 07/11/ | Office | [facility] [place] | Shelley Robledo | Closed head injury | | 2018 | Visit | [facility] | MD [place] [address] | without loss of | | | | [place] [address] [place] | consciousness, | | | | [address] [place] | [place] [address] | subsequent encounter | | | | [place] | [phone] | (Primary Dx); Place | | | | [address] | | of occurrence, | | | | [phone] | | industrial places | | | [...] he has been notified by the claims adjuster supervisor that the [place]UEL was reviewed, and [...] Vital signs as noted, nursing notes reviewed. Iufyzpa-jxko-ojezlnwbw, well-nourished, in no apparent distress, pleasant cooperative. [...] [place]. This note was dictated using [employer] voice recognition software. Occasional wrong- word or [...]
--- OUTSIDE RECORDS SUMMARY | ~2019-08-15 | XMS | Encounter Summary ---
Demographics + + + | Address | [address] | | | [place] [address] | + + + | Home Phone | | + + + | Preferred Language | Unknown | + + + | Marital Status | | + + + | Synagogue Affiliation | Unknown | + + + | Race | Unknown | + + + | Ethnic Group | Unknown | + + + Author + + + | Author | [facility] | | | and [place] | + + + | Organization | [facility] | | | [...] Team Providers + +------+ + | Care Research Associate Quality Control Qc Name | Role | Phone | + +------+ + PCP | Unavailable | + +------+ + Encounter Details +--------+ + + + + | Date | Type | Department | Care Team | Description | +--------+ + + + + | 06/17/ | Hospital | [facility] | | | | 1992 | Encounter | MED CTR EMERGENCY | | | | | | [place] [address] | | | | | | [place] | | | | | | [address] | | | | | | [phone] | | | +--------+ + + + [...]
--- OUTSIDE RECORDS SUMMARY | ~2019-08-15 | XMS | Encounter Summary ---
Demographics + + + | Address | [address] | | | [place] [address] | + + + | Home Phone | | + + + | Preferred Language | Unknown | + + + | Marital Status | | + + + | Confucianist Affiliation | Unknown | + + + [...] Team Providers + +------+ + | Care Investment Banking Analyst Name | Role | Phone | + +------+ + PCP | Unavailable | + +------+ + Encounter Details +--------+ + + + + | Date | Type | Department | Care Team | Description | +--------+ + + + + | 11/21/ | Hospital | [facility] | | | | 1996 | Encounter | MED CTR EMERGENCY | | | | | | [place] [address] | | | | | | [place] | | | | | | [address] | | | | | | [phone] | | | +--------+ + + + [...]
--- OUTSIDE RECORDS SUMMARY | ~2019-08-15 | XMS | Encounter Summary ---
Demographics + + + | Address | [address] | | | [place] [address] | + + + | Home Phone | | + + + | Preferred Language | Unknown | + + + | Marital Status | | + + + | Yazidi Affiliation | Unknown | + + + | Race | Unknown | + + + | Ethnic Group | Unknown | + + + Author + + + | Author | [facility] | | | and [place] | + + + | Organization | [facility] | | | [...] Team Providers + +------+ + | Care Cement Truck Driver Name | Role | Phone | [...] [address] | | | | | [address] | [place] [address] | | | | | [place] | [phone] | | | | | [place] | | | | | | [address] | | | | | | [phone] | | | +--------+ + + + [...]
--- OUTSIDE RECORDS SUMMARY | ~2019-08-15 | XMS | Encounter Summary ---
Demographics + + + | Address | [address] | | | [place] [address] | + + + | Home Phone | | + + + | Preferred Language | Unknown | + + + | Marital Status | | + + + | Yazdanism Affiliation | Unknown | + + + | Race | Unknown | + + + | Ethnic Group | Unknown | + + + Author + + + | Author | [facility] | | | and [place] | + + + | Organization | [facility] | | | [...] Team Providers + +------+ + | Care Sports Medicine Coordinator Name | Role | Phone | + [...] + + | 03/24/ | Office | [facility] | Sada Douglass | Crush injury | | 2015 | Visit | CARE [address] | DO [address] | (Primary Dx) | | | | [place], [place] | [place], [place] | | | | | [address] | [address] | | | | | [phone] | | | +--------+---------+ + + + [...] PDTKeep wound clean and dry Prescription for [place] for pain Prescription for Keflex for antibiotic Keep nail protected so it is not accidentally pulled off Return if symptoms worsen or fail to improve documented in this encounter Progress Notes Sada Douglass MD - 03/24/2015 7:34 PM PDTFormatting [...] of pain althou gh the finger was foundry tender. Pt finger was dressed and he [...] degenerative changes are visualized of the | [facility] | | radiocarpal joint and the [...] [address] | [place] | [phone] | | [facility] | | [address] | | | - IMAGING | | | | + + + + + documented in this encounter Visit Diagnoses + + | Diagnosis | + + | Crush injury - Primary Crushing injury of unspecified site | + + documented in this encounter
--- OUTSIDE RECORDS SUMMARY | ~2019-08-15 | XMS | Encounter Summary ---
Demographics + + + | Address | [address] | | | [place] [address] | + + + | Home Phone [...] Team Providers + +------+ + | Care Custom Wood Stair Builder Name | Role | Phone | + +------+ + PCP | Unavailable | + +------+ + Encounter Details +--------+ + + + + | Date | Type | Department | Care Team | Description | +--------+ + + + + | 07/02/ | Hospital | [facility] | Gonsalo Ball, | | | 2012 | Encounter | MED CTR EMERGENCY | [address] | | | | | CENTER [address] | [facility] [place] | | | | | [place] | [place] [address] | | | | | [address] | [phone] | | | | | [phone] | | | | | | | Gold Rothman | | | | | | MD [place] [address] | | | | | | [address] [place] | | | | | | [place] [address] | | | | | | [phone] | | | | | | | [...]
--- OUTSIDE RECORDS SUMMARY | ~2019-08-15 | XMS | Encounter Summary ---
Demographics + + + | Address | [address] | | | [place] [address] | + + + | Home Phone [...] Team Providers + +------+ + | Care Sales Department Supervisor Name | Role | Phone | + +------+ + | No, Physician | PCP | Unavailable | + +------+ + Encounter Details +--------+---------+ + + + | Date | Type | Department | Care Team | Description | +--------+---------+ + + + | 09/10/ | Office | [facility] | Shelley Robledo | Closed head injury | | 2019 | Visit | [facility] | MD [place] [address] | without loss of | | | | [place] [address] [place] | consciousness, | | | | [address] [place] | [place] [address] | subsequent encounter | | | | [place], [place] | [phone] | (Primary Dx); Place | | | | [address] | | of occurrence, | | | | [phone] | | industrial places | | | [...] is documentation of phone conversati on with claims administrator, Shelley, regarding this injured worker. She does [...]
--- OUTSIDE RECORDS SUMMARY | ~2019-08-15 | XMS | Encounter Summary ---
Demographics + + + | Address | [address] | | | [place] [address] | + + + | Home Phone | | + + + | Preferred Language | Unknown | + + + | Marital Status | | + + + | Sikh Affiliation | Unknown | + + + | Race | Unknown | + + + | Ethnic Group | Unknown | + + + Author + + + | Author | [facility] | | | and [place] | + + + | Organization | [facility] | | | and [...] Team Providers + +------+ + | Care Rubber Tubing Splicer Name | Role | Phone | + [...] + + | 05/04/ | Office | [facility] | Shelley Robledo | Head injury, acute, | | 2018 | Visit | [facility] | MD [place] [address] | without loss of | | | | [place] [address] [place] | consciousness, | | | | [address] [place] | [place] [address] | initial encounter | | | | [place] | [phone] | (Primary Dx); Place | | | | [address] | | of occurrence, | | | | [phone] | | industrial places | | | [...] LISA Date of injury: 04/27/18 Claim number: [id number] Chief complaint: Follow-up head injury Subjective: Injured [...] He was dictated the emergency department in [place], evaluated and released wit hout specific treatment. [...] Vital signs as noted, nursing notes reviewed. Phkutxn-sdxx-ruchmccam, well-nourished, in no apparent distress, pleasant cooperative. [...] MMI status. This note was dictated using [employer] voice recognition software. Occasional wrong- word or [...]
--- OUTSIDE RECORDS SUMMARY | ~2019-08-15 | XMS | Encounter Summary ---
Demographics + + + | Address | [address] | | | [place] [address] | + + + | Home Phone [...] Team Providers + +------+ + | Care Kindergarten Instructional Assistant Name | Role | Phone | + +------+ + PCP | Unavailable | + +------+ + Encounter Details +--------+ + + + + | Date | Type | Department | Care Team | Description | +--------+ + + + + | 10/18/ | Hospital | [facility] | | | | 1997 | Encounter | MED CTR EMERGENCY | | | | | | [place] [address] | | | | | | [place] | | | | | | [address] | | | | | | [phone] | | | +--------+ + + + [...]
--- OUTSIDE RECORDS SUMMARY | ~2019-08-15 | XMS | Encounter Summary ---
Demographics + + + | Address | [address] | | | [place] [address] | + + + | Home Phone | | + + + | Preferred Language | Unknown | + + + | Marital Status | | + + + | Adventism Affiliation | Unknown | + + + | Race | Unknown | + + + | Ethnic Group | Unknown | + + + Author + + + | Author | [facility] | | | and [place] | + + + | Organization | [facility] | [...] Team Providers + +------+ + | Care Proposal Coordinator Name | Role | Phone | + +------+ + | No, Physician | PCP | Unavailable | + +------+ + Encounter Details +--------+ + + + + | Date | Type | Department | Care Team | Description | +--------+ + + + + | 03/24/ | Hospital | [facility] | Sada Douglass | Crush injury | | 2015 | Encounter | MED CTR [place] XRAY | DO [address]etha [place] | | | | | [address] | [address] [place] | | | | | [place] | [address] | | | | | [address] | | | | | | [phone] | | | +--------+ + + + [...] degenerative changes are visualized of the | [facility] | | radiocarpal joint and the [...] | [address] | [place] | [phone] | | [facility] | | [address] | | | - IMAGING | | | | + + + + + documented in this encounter Visit Diagnoses + + | Diagnosis | + + | Crush injury Crushing injury of unspecified site | + + documented in this encounter"
--- NOTE | 2019-08-15 14:37 | EKG ---
[facility] [address] [place], [place] [address] Signed Sinus bradycardia Inferior infarct , age undetermined Abnormal ECG No previous ECGs available Confirmed by RUBEN WELLER MD ([id number]) on 08/15/2019 2:36:48 PM Electronically Signed By: RUBEN WELLER MD 08/15/19 1437 PATIENT NAME: ZEN STANFORD ALAN Electrocardiogram DATE OF : 65 PHYSICIAN: RUBEN WELLER MD REPORT #: [id number] REPORT IS CONFIDENTIAL AND NOT TO BE RELEASED WITHOUT AUTHORIZATION
== END 2019-08-15 14:12 | disposition home or self-care (01) ==
LOC: ED 12:16
DX: S46.912A Strain of unspecified muscle, fascia and tendon at shoulder and upper arm level, left arm, initial encounter (principal); X58.XXXA Exposure to other specified factors, initial encounter; F17.200 Nicotine dependence, unspecified, uncomplicated; Z88.0 Allergy status to penicillin
CPT/HCPCS: 73030; 80053; 83735; 84484; 85025; 93005; 93010; 99285-25